=== PATIENT | female | born 1935 | race Caucasian/White ===

== ENCOUNTER 2017-10-27 09:55 | Inpatient (IN) | payer OTHER ==
[2017-10-27] MEDS ORDERED: Sodium Chloride 0.9% 1,000 ML IV STA (10:14)
--- NOTE | 2017-10-27 10:19 | ED PDOC ---
Arrival/HPI - General Chief Complaint: GI Problem Time Seen by Provider: 10/27/17 10:01 Historian: Patient, Family (daughter) - History of Present Illness Narrative History of Present Illness (Text): 10/27/17 10:19 This 82 yo female presents to this ED c/o generalized abdominal pain x 2 days. Patient stated she became nauseous , and vomited multiple time and occasional diarrhea since yesterday. Patient denies rectal bleeding, sob, cp, mandujano, dizziness, or abnormal gait. Denies recent travel, trauma, skin rash, hemoptysis, or sick contact. Time/Duration: Other (see hpi) Context: Home Past Medical History - Provider Review Nursing Documentation Reviewed: Yes - Infectious Disease Hx of Infectious Diseases: None - Cardiac Hx Cardiac Disorders: No - Pulmonary Hx Respiratory Disorders: No - Neurological Hx Neurological Disorder: No - HEENT Hx HEENT Disorder: No - Renal Hx Renal Disorder: No - Endocrine/Metabolic Hx Endocrine Disorders: No - Hematological/Oncological Hx Blood Transfusions: No Hx Blood Transfusion Reaction: No - Integumentary Hx Dermatological Disorder: No - Musculoskeletal/Rheumatological Hx Musculoskeletal Disorders: No - Gastrointestinal Hx Colostomy: Yes Other/Comment: Colon CA - Genitourinary/Gynecological Hx Genitourinary Disorders: No - Psychiatric Hx Emotional Abuse: No Hx Physical Abuse: No Hx Substance Use: No - Past Surgical History Past Surgical History: No Previous - Surgical History Other/Comment: Colon surgery - Anesthesia Hx Anesthesia Reactions: No Hx Malignant Hyperthermia: No - Suicidal Assessment Feels Threatened In Home Enviroment: No Family/Social History - Physician Review Nursing Documentation Reviewed: Yes Family/Social History: Other (noncontributory) Smoking Status: Unknown If Ever Smoked Hx Alcohol Use: No Hx Substance Use: No Hx Substance Use Treatment: No Allergies/Home Meds Allergies/Adverse Reactions: Allergies No Known Allergies Allergy (Verified 10/27/17 10:14) Home Medications: Home Meds Medication Instructions Recorded Confirmed Unobtainable 10/27/17 10/27/17 Review of Systems - Review of Systems Constitutional: Normal. absent: Fatigue, Weight Change, Fevers Eyes: Normal ENT: Normal. absent: Sore Throat Respiratory: Cough. absent: SOB, Sputum, Wheezing Cardiovascular: Normal. absent: Chest Pain, Palpitations Gastrointestinal: Abdominal Pain, Diarrhea, Nausea, Vomiting. absent: Constipation Genitourinary Female: Normal. absent: Dysuria, Frequency, Hematuria, Vaginal Bleeding, Vaginal Discharge Musculoskeletal: Normal. absent: Back Pain Skin: Normal. absent: Rash Neurological: Normal. absent: Headache, Dizziness, Focal Weakness, Gait Changes , Speech Changes, Facial Droop, Disequilibrium, Seizure Endocrine: Normal Hemo/Lymphatic: Normal Psychiatric: Normal Physical Exam Vital Signs Temp Pulse Resp BP Pulse Ox 10/27/17 12:08 74 16 135/77 98 10/27/17 11:46 98 H 16 100/46 L 98 10/27/17 10:02 97.9 F 100 H 18 101/66 97 Temperature: Afebrile Blood Pressure: Normal Pulse: Regular Respiratory Rate: Normal Appearance: Positive for: Well-Appearing, Non-Toxic, Ill-Appearing, Uncomfortable Pain Distress: Mild Mental Status: Positive for: Alert and Oriented X 3 - Systems Exam Head: Present: Atraumatic, Normocephalic Pupils: Present: PERRL Extroacular Muscles: Present: EOMI Conjunctiva: Present: Normal Mouth: Present: Moist Mucous Membranes Neck: Present: Normal Range of Motion, Trachea Midline. No: Meningeal Signs Respiratory/Chest: Present: Clear to Auscultation, Good Air Exchange. No: Respiratory Distress, Accessory Muscle Use Cardiovascular: Present: Regular Rate and Rhythm, Normal S1, S2. No: Murmurs Abdomen: Present: Normal Bowel Sounds. No: Tenderness, Distention, Peritoneal Signs, Rebound, Guarding Back: Present: Normal Inspection. No: CVA Tenderness Upper Extremity: Present: Normal Inspection, Normal ROM. No: Cyanosis, Edema Lower Extremity: Present: Normal Inspection, Normal ROM. No: Edema Neurological: Present: GCS=15, CN II-XII Intact, Speech Normal, Motor Func Grossly Intact, Normal Sensory Function, Normal Cerebellar Funct, Gait Normal, Memory Normal Skin: Present: Warm, Dry, Normal Color. No: Rashes Psychiatric: Present: Alert, Oriented x 3, Normal Insight, Normal Concentration Medical Decision Making ED Course and Treatment: 10/27/17 12:25 I spoke with Rosy Bulldozer Press Operator regarding patient presentation, and concern for bowel obstruction. She stated she is doing round and she will soon see patient. 10/27/17 13:00 Dr. Flores Surgeon came to examined patient and agrees with plan for admission. He recommended NPO, IVF 10/27/17 13:30 I spoke with VERA Gibson regarding bowel obstruction, n/v x 2 days. She agreed with plan for admission. Re-evaluation Time: 13:38 Reassessment Condition: Re-examined, Improving,but remains with symptoms - Lab Interpretations Lab Results: 10/27/17 10:30 10/27/17 10:30 Lab Results 10/27/17 11:01: Influenza Typ A,B (EIA) Negative for flu a/b 10/27/17 10:30: Sodium 143, Potassium 3.5 L, Chloride 101, Carbon Dioxide 23, Anion Gap 23 H, BUN 34 H, Creatinine 1.6 H, Est GFR ( Amer) 37, Est GFR ( Non-Af Amer) 31, Random Glucose 124 H, Calcium 9.5, Total Bilirubin 4.3 H, AST 65 H, ALT 24, Alkaline Phosphatase 134 H, Total Protein 7.2, Albumin 3.5, Globulin 3.7, Albumin/Globulin Ratio 1.0 L, Lipase 19 L 10/27/17 10:30: PT 16.4 H, INR 1.42 H, APTT 28.3 10/27/17 10:30: WBC 4.7, RBC 4.25, Hgb 14.2, Hct 42.3, MCV 99.5, MCH 33.4, MCHC 33.6, RDW 16.1 H, Plt Count 143, MPV 10.6, Gran % 78.3 H, Lymph % (Auto) 11.1 L , Boundary % (Auto) 10.0 H, Eos % (Auto) 0.4 L, Baso % (Auto) 0.2, Gran # 3.68, Lymph # (Auto) 0.5 L, Boundary # (Auto) 0.5, Eos # (Auto) 0.0, Baso # (Auto) 0.01 I have reviewed the lab results: Yes Interpretation: Abnormal lab values - RAD Interpretation Narrative RAD Interpretations (Text): 10/27/17 11:12 HISTORY: Cough COMPARISON: 09/13/2013 FINDINGS: LUNGS: No active pulmonary disease. PLEURA: No significant pleural effusion identified, no pneumothorax apparent. CARDIOVASCULAR: Upper No radiographic findings to suggest acute or significant cardiovascular disease. Venous access catheter in stable, satisfactory position. OSSEOUS STRUCTURES: No significant abnormalities. VISUALIZED UPPER ABDOMEN: Normal. OTHER FINDINGS: None. IMPRESSION: No active disease. No significant interval change compared to the prior examination(s). 10/27/17 12:42 This report is currently processing and HAS NOT BEEN OFFICIALLY SIGNED BY THE PHYSICIAN - ESTIMATED TIME OF APPROVAL IS 10/27/2017 12:42. PROCEDURE: CT Abdomen and Pelvis without intravenous contrast HISTORY: abdominal pain, n/v r/o obstruction COMPARISON: 09/28/2013 CT abdomen and pelvis. TECHNIQUE: Unenhanced study. Neither oral nor intravenous contrast administered. Radiation dose: Total exam DLP = 696.21 mGy-cm. This CT exam was performed using one or more of the following dose reduction techniques: Automated exposure control, adjustment of the mA and/or kV according to patient size, and/or use of iterative reconstruction technique. FINDINGS: LOWER THORAX: Unremarkable. LIVER: Unremarkable. No gross lesion or ductal dilatation. GALLBLADDER AND BILE DUCTS: Unremarkable. PANCREAS: Unremarkable. No gross lesion or ductal dilatation. SPLEEN: Unremarkable. ADRENALS: Unremarkable. No mass. KIDNEYS AND URETERS: Nonobstructing bilateral renal calculi none larger than 4 mm. VASCULATURE: Unremarkable. No aortic aneurysm. BOWEL: Small bowel obstruction. The point of obstruction appears to be a in the right lower quadrant at the site of surgical clips. More distally, terminal ileum and colon are decompressed. Left inguinal hernia containing dilated small bowel. The stomach is distended with large air-fluid level. APPENDIX: A normal appendix is not visualized. PERITONEUM: Unremarkable. No free fluid. No free air. LYMPH NODES: Unremarkable. No enlarged lymph nodes. BLADDER: Unremarkable. REPRODUCTIVE: Unremarkable. BONES: No acute fracture. OTHER FINDINGS: None. IMPRESSION: 1. Distal small bowel obstruction. Small bowel proximal to the obstruction is dilated as is the stomach with a large air-fluid level. This appears at the site of surgical clips in the right lower quadrant. 2. Proximal to this is a moderate left inguinal hernia containing dilated loops of small bowel. No obvious incarceration. 3. Postoperative changes related to a colectomy. Communication of results: Attempts to reach the physician residential assistant and convey these findings and obtain additional clinical information were unsuccessful. Radiology Orders: 10/27/17 10:27 ABD & PELVIS W/O PO OR IV CONT [CT] Stat 10/27/17 10:28 CHEST PORTABLE [RAD] Stat 10/27/17 12:35 CHEST PORTABLE [RAD] Stat - Medication Orders Current Medication Orders: Sodium Chloride (Sodium Chloride 0.9%) 1,000 mls @ 75 mls/hr IV .[id number] SARAH Discontinued Medications Famotidine (Pepcid) 20 mg IVP STAT STA Stop: 10/27/17 10:15 Last Admin: 10/27/17 10:34 Dose: 20 mg IVP Administration Document 10/27/17 10:34 SE (Rec: 10/27/17 10:34 [id number] Charges for Administration # of IVP Administrations 1 Sodium Chloride (Sodium Chloride 0.9%) 1,000 mls @ 1,000 mls/hr IV .Q1H STA Stop: 10/27/17 11:13 Last Admin: 10/27/17 10:34 Dose: 1,000 mls/hr eMAR Start Stop Document 10/27/17 10:34 SE (Rec: 10/27/17 10:34 [id number] Intravenous Solution Start Date 10/27/17 Start Time 10:34 Morphine Sulfate (Morphine) 2 mg IVP STAT STA Stop: 10/27/17 10:29 Last Admin: 10/27/17 10:42 Dose: 2 mg MAR Pain Assessment Document 10/27/17 10:42 SE (Rec: 10/27/17 10:42 [facility] [id number]) Pain Reassessment Is this a pain reassessment? No Sleep Is patient sleeping during reassessment? No Presence of Pain Presence of Pain Yes Pain Scale Used Pain Scale Used Numeric IVP Administration Document 10/27/17 10:42 SE (Rec: 10/27/17 10:42 [facility] [id number]) Charges for Administration # of IVP Administrations 1 Ondansetron HCl (Zofran Inj) 4 mg IVP STAT STA Stop: 10/27/17 10:15 Last Admin: 10/27/17 10:34 Dose: 4 mg IVP Administration Document 10/27/17 10:34 SE (Rec: 10/27/17 10:34 [id number][facility] Charges for Administration # of IVP Administrations 1 Disposition/Present on Arrival - Present on Arrival Any Indicators Present on Arrival: No History of DVT/PE: No History of Uncontrolled Diabetes: No Urinary Catheter: No History of Decub. Ulcer: No History Surgical Site Infection Following: None - Disposition Have Diagnosis and Disposition been Completed?: Yes Diagnosis: Small bowel obstruction Disposition: HOSPITALIZED Disposition Time: 13:39 Patient Plan: Admission Condition: STABLE Referrals: Krystle Monte MD [Primary Care Provider] - Follow up with primary Forms: [employer] (Salvadorean)
[2017-10-27] MEDS ORDERED: Morphine 2 mg/ml ISec IVP STA (10:28)
[2017-10-27 10:56] LABS: BASO # 0.01 K/mm3 (0.0-2.0); BASO % 0.2 % (0.0-3.0); EOS % 0.4 % (1.5-5.0); GRAN # 3.68 (1.4-6.5); GRAN % 78.3 % (50.0-68.0); HEMOGLOBIN 14.2 g/dL (12.0-16.0); LYMPH # 0.5 (1.2-3.4); LYMPH % 11.1 % (22.0-35.0); MEAN CELL VOLUME 99.5 fl (80.0-105.0); MEAN CORPUSCULAR HEMOGLOBIN 33.4 pg (25.0-35.0); MEAN CORPUSCULAR HGB CONC 33.6 g/dl (31.0-37.0); MEAN PLATELET VOLUME 10.6 fl (7.0-11.0); MONO # 0.5 (0.1-0.6); RBC 4.25 10^6/uL (3.5-6.1); RED CELL DISTRIBUTION WIDTH 16.1 % (11.5-14.5); WHITE BLOOD COUNT 4.7 10^3/ul (4.5-11.0)
[2017-10-27 11:02] LABS: PROTHROMBIN TIME 16.4 SECONDS (9.4-12.5)
[2017-10-27 11:03] LABS: ALBUMIN 3.5 g/dL (3.0-4.8); CALCIUM 9.5 mg/dL (8.4-10.5); INR 1.42 (0.93-1.08); PARTIAL THROMBOPLASTIN TIME 28.3 Seconds (25.1-36.5)
--- NOTE | 2017-10-27 11:05 | RAD ---
HISTORY: Cough COMPARISON: 09/13/2013 FINDINGS: LUNGS: No active pulmonary disease. PLEURA: No significant pleural effusion identified, no pneumothorax apparent. CARDIOVASCULAR: Upper No radiographic findings to suggest acute or significant cardiovascular disease. Venous access catheter in stable, satisfactory position. OSSEOUS STRUCTURES: No significant abnormalities. VISUALIZED UPPER ABDOMEN: Normal. OTHER FINDINGS: None. IMPRESSION: No active disease. No significant interval change compared to the prior examination(s).
--- NOTE | 2017-10-27 12:37 | CT ---
PROCEDURE: CT Abdomen and Pelvis without intravenous contrast HISTORY: abdominal pain, n/v r/o obstruction COMPARISON: 09/28/2013 CT abdomen and pelvis. TECHNIQUE: Unenhanced study. Neither oral nor intravenous contrast administered. Radiation dose: Total exam DLP = 696.21 mGy-cm. This CT exam was performed using one or more of the following dose reduction techniques: Automated exposure control, adjustment of the mA and/or kV according to patient size, and/or use of iterative reconstruction technique. FINDINGS: LOWER THORAX: Unremarkable. LIVER: Unremarkable. No gross lesion or ductal dilatation. GALLBLADDER AND BILE DUCTS: Unremarkable. PANCREAS: Unremarkable. No gross lesion or ductal dilatation. SPLEEN: Unremarkable. ADRENALS: Unremarkable. No mass. KIDNEYS AND URETERS: Nonobstructing bilateral renal calculi none larger than 4 mm. VASCULATURE: Unremarkable. No aortic aneurysm. BOWEL: Small bowel obstruction. The point of obstruction appears to be a in the right lower quadrant at the site of surgical clips. More distally, terminal ileum and colon are decompressed. Left inguinal hernia containing dilated small bowel. The stomach is distended with large air-fluid level. APPENDIX: A normal appendix is not visualized. PERITONEUM: Unremarkable. No free fluid. No free air. LYMPH NODES: Unremarkable. No enlarged lymph nodes. BLADDER: Unremarkable. REPRODUCTIVE: Unremarkable. BONES: No acute fracture. OTHER FINDINGS: None. IMPRESSION: 1. Distal small bowel obstruction. Small bowel proximal to the obstruction is dilated as is the stomach with a large air-fluid level. This appears at the site of surgical clips in the right lower quadrant. 2. Proximal to this is a moderate left inguinal hernia containing dilated loops of small bowel. No obvious incarceration. 3. Postoperative changes related to a colectomy. Communication of results: Attempts to reach the physician licensed physical therapy assistant and convey these findings and obtain additional clinical information were unsuccessful.
[2017-10-27] MEDS ORDERED: Sodium Chloride 0.9% 1,000 ML IV SCH ×2 (13:45→14:10)
[2017-10-27] MEDS ORDERED: Morphine 4 mg/ml ISec IVP PRN (14:20)
--- NOTE | 2017-10-27 15:20 | RAD ---
HISTORY: Nasogastric tube placement. COMPARISON: October 27, 2017. Time of the most recent examination: 10:50. FINDINGS: LUNGS: No active pulmonary disease. PLEURA: No significant pleural effusion identified, no pneumothorax apparent. CARDIOVASCULAR: No radiographic findings to suggest acute or significant cardiovascular disease. Venous access catheter in stable, satisfactory position. OSSEOUS STRUCTURES: No significant abnormalities. VISUALIZED UPPER ABDOMEN: Normal. OTHER FINDINGS: Nasogastric tube recently placed courses through the esophagus into the distal stomach. IMPRESSION: Satisfactory position of recently placed nasogastric tube. Otherwise no interval change.
--- NOTE | 2017-10-27 15:33 | CP.PCM.CON ---
<Rosy Cade - Last Filed: 10/27/17 15:29> History of Present Illness - History of Present Illness History of Present Illness: General surgery consult for Dr. Flores CC: SBO, inguinal hernia Patient is an 82F with PMH of anal cancer and PSH of colostomy, right hemicolectomy for intussusception and reversal of colostomy who presented tothe ED for one day of nausea, vomiting, and diffuse abdominal pain. Patient denies any fevers, chills, Chest pain, SOB, states that she has had poor appetite for a couple of days. Patient had an episode of dark green/brown foul smelling emesis in the ER. CT scan showed small bowel obstruction with transition point in small bowel containing left inguinal hernia. ER inserted NGT with immediate 100cc's of brown/green fluid. Review of Systems - Review of Systems All systems: reviewed and no additional remarkable complaints except (as per HPI ) Past Patient History - Infectious Disease Hx of Infectious Diseases: None - Past Medical History & Family History Past Medical History?: Yes - Past Social History Smoking Status: Unknown If Ever Smoked Alcohol: None Drugs: Denies - CARDIAC Hx Cardiac Disorders: No Hx Hypertension: Yes - PULMONARY Hx Respiratory Disorders: No - NEUROLOGICAL Hx Neurological Disorder: No - HEENT Hx HEENT Problems: No - RENAL Hx Chronic Kidney Disease: No - ENDOCRINE/METABOLIC Hx Endocrine Disorders: No - HEMATOLOGICAL/ONCOLOGICAL Hx Blood Transfusions: No Hx Blood Transfusion Reaction: No - INTEGUMENTARY Hx Dermatological Problems: No - MUSCULOSKELETAL/RHEUMATOLOGICAL Hx Musculoskeletal Disorders: No - GASTROINTESTINAL Hx Colostomy: Yes Hx Gastroesophageal Reflux: Yes Other/Comment: anal CA - GENITOURINARY/GYNECOLOGICAL Hx Genitourinary Disorders: No - PSYCHIATRIC Hx Emotional Abuse: No Hx Physical Abuse: No Hx Substance Use: No - SURGICAL HISTORY Hx Surgeries: Yes Other/Comment: anal cancer resection, colostomy, reversal of colostomy and right hemicolectomy - ANESTHESIA Hx Anesthesia Reactions: No Hx Malignant Hyperthermia: No Meds Allergies/Adverse Reactions: Allergies Allergy/AdvReac Type Severity Reaction Status Date / Time No Known Allergies Allergy Verified 10/27/17 10:14 - Medications Medications: Current Medications Potassium Chloride 20 meq/ (Lactated Ringer's) 1,010 mls @ 125 mls/hr IV .Q8H5M SARAH Stop: 02/12/18 14:31 Morphine Sulfate (Morphine) 4 mg IVP Q4H PRN PRN Reason: Pain, severe (8-10) Physical Exam - Constitutional Appears: Non-toxic, No Acute Distress - Head Exam Head Exam: ATRAUMATIC, NORMOCEPHALIC - Eye Exam Eye Exam: Scleral icterus - ENT Exam ENT Exam: Mucous Membranes Moist, Normal Oropharynx - Respiratory Exam Respiratory Exam: NORMAL BREATHING PATTERN. absent: Accessory Muscle Use, Respiratory Distress - Cardiovascular Exam Cardiovascular Exam: Tachycardia, REGULAR RHYTHM - GI/Abdominal Exam GI & Abdominal Exam: Distended, Soft, Tenderness (mild diffuse tenderness) Additional comments: palpable soft left inguinal hernia, was able to reduced - Rectal Exam Rectal Exam: NORMAL INSPECTION. absent: Bloody Stool - Extremities Exam Extremities exam: Negative for: calf tenderness, pedal edema - Neurological Exam Neurological exam: Alert, Oriented x3 - Psychiatric Exam Psychiatric exam: Normal Affect, Normal Mood - Skin Skin Exam: Dry, Normal Color, Warm Results - Vital Signs Recent Vital Signs: Last Vital Signs Temp 97.9 F 10/27/17 10:02 Pulse 74 10/27/17 12:08 Resp 16 10/27/17 12:08 BP 135/77 10/27/17 12:08 Pulse Ox 98 10/27/17 12:08 - Labs Result Diagrams: 10/27/17 10:30 10/27/17 10:30 - Imaging and Cardiology CT scan - abdomen Status: Image reviewed by me, Report reviewed by me CT scan - pelvis Status: Image reviewed by me, Report reviewed by me Assessment & Plan - Assessment and Plan (Free Text) Assessment: 82F with small bowel obstruction d/t left inguinal hernia containing small bowel. Elevated LFT's--R/O cholecystitis Plan: -NGT inserted--intermittent low wall suction -NPO except small amount of ice chips -Abdominal US for elevated LFT evaluation -PRN Nausea and pain medication -trend CBC/CMP, mag, phos -supplement electrolytes as needed -medical management per primary -Patient will need an inguinal hernia repair once bowel obstruction is resolved. Seen and discussed with Dr. Mark Cade, PGY2 <Anil Flores - Last Filed: 10/27/17 19:11> Meds - Medications Medications: Current Medications Heparin Sodium (Porcine) (Heparin) 5,000 units SC Q8 SARAH PRN Reason: Protocol Potassium Chloride 20 meq/ (Lactated Ringer's) 1,010 mls @ 125 mls/hr IV .Q8H5M SARAH Stop: 10/28/17 14:31 Last Admin: 10/27/17 18:05 Dose: 125 mls/hr Morphine Sulfate (Morphine) 4 mg IVP Q4H PRN PRN Reason: Pain, severe (8-10) Pantoprazole Sodium (Protonix Inj) 40 mg IVP DAILY [facility] Results - Vital Signs Recent Vital Signs: Last Vital Signs Temp 97.7 F 10/27/17 16:00 Pulse 78 10/27/17 16:44 Resp 16 10/27/17 16:44 BP 120/56 L 10/27/17 16:44 Pulse Ox 95 10/27/17 16:00 - Labs Result Diagrams: 10/27/17 10:30 10/27/17 10:30 Labs: Laboratory Results - last 24 hr 10/27/17 16:44 Triglycerides 88 Cholesterol 123 L LDL Cholesterol Direct 39 HDL Cholesterol 51 Assessment & Plan - Assessment and Plan (Free Text) Assessment: Dx Reduced Left Femoral Hernia(SBO) Anal CA Elevated LFT(Bili 4.3-CD ^>^ mm/Sono Sludge-stones Ilia NGT/IV/Ab/MRCP/GI Consultt(Poss EUS_ERCP) This consult done under my direct supervision An Flores MD FACS
--- NOTE | 2017-10-27 15:53 | US ---
HISTORY: abdominal pain, elevated LFT's COMPARISON: 10/10/2014 abdominal ultrasound TECHNIQUE: Sonographic evaluation of the abdomen. FINDINGS: LIVER: Measures 13.3 cm. Hepatopedal blood flow. Fatty infiltration manifest ultrasonographically as increased echogenicity of the liver parenchyma. No mass. No intrahepatic bile duct dilatation. GALLBLADDER: Unremarkable. No gallstones. COMMON BILE DUCT: Measures 6.6 mm. No stones. No dilatation. PANCREAS: Incompletely visualized. Portions of the distal body and tail of the pancreas obscured by overlying bowel gas. RIGHT KIDNEY: Measures 3.9 x 8.3cm. Normal echogenicity. No calculus, mass, or hydronephrosis. LEFT KIDNEY: Measures 5 x 9.9cm. Normal echogenicity. No calculus, mass, or hydronephrosis. SPLEEN: Normal in size and contour. No mass. AORTA: No aneurysmal dilatation. IVC: Unremarkable. OTHER FINDINGS: None. IMPRESSION: Hepatic steatosis without focal abnormality. No significant interval change compared to the prior examination(s).
[2017-10-27 17:03] VITALS: BMI 33.9
[2017-10-27 17:05] LABS: HDL CHOLESTEROL 51 mg/dL (29-60)
[2017-10-27 17:16] LABS: LDL CHOLESTEROL 39 mg/dL (0-129)
[2017-10-27] MEDS: Potassium Chloride 20 MEQ in Lactated Ringer's 1,000 ML IV SCH ×2 (18:05→23:00)
--- NOTE | 2017-10-27 22:06 | CP.PCM.PCO ---
Physician Communication Note - Physician Communication Note Physician Communication Note: Pt c/o calf pain. Exam:BL Calf tenderness. STAT BL LE US, nurse notified
[2017-10-28 07:11] LABS: BASO # 0.01 K/mm3 (0.0-2.0); BASO % 0.1 % (0.0-3.0); EOS # 0.1 (0.0-0.7); EOS % 0.7 % (1.5-5.0); GRAN # 4.96 (1.4-6.5); GRAN % 72.6 % (50.0-68.0); HEMOGLOBIN 12.4 g/dL (12.0-16.0); LYMPH # 0.8 (1.2-3.4); LYMPH % 12.3 % (22.0-35.0); MEAN CELL VOLUME 100.3 fl (80.0-105.0); MEAN CORPUSCULAR HEMOGLOBIN 32.7 pg (25.0-35.0); MEAN CORPUSCULAR HGB CONC 32.6 g/dl (31.0-37.0); MEAN PLATELET VOLUME 11.7 fl (7.0-11.0); MONO % 14.3 % (1.0-6.0); PLATELET COUNT 132 10^3/uL (120.0-450.0); RBC 3.79 10^6/uL (3.5-6.1); RED CELL DISTRIBUTION WIDTH 16.5 % (11.5-14.5); WHITE BLOOD COUNT 6.8 10^3/ul (4.5-11.0)
[2017-10-28 07:38] LABS: ALB/GLOB RATIO 0.8 (1.1-1.8); ALBUMIN 2.7 g/dL (3.0-4.8); CALCIUM 8.6 mg/dL (8.4-10.5); MAGNESIUM 2.1 mg/dL (1.7-2.2)
[2017-10-28 07:42] LABS: INR 1.57 (0.93-1.08); PARTIAL THROMBOPLASTIN TIME 28.2 Seconds (25.1-36.5); PROTHROMBIN TIME 18.2 SECONDS (9.4-12.5)
--- NOTE | 2017-10-28 07:44 | CP.PCM.PN ---
Subjective - Date & Time of Evaluation Date of Evaluation: 10/28/17 Time of Evaluation: 07:44 - Subjective Subjective: Surgery progress note for Dr. Flores Patient seen and examined at bedside. Patient still has LLQ and Left pelvic pain. Patient otherwise doing fine Objective - Vital Signs/Intake and Output Vital Signs (last 24 hours): Temp Pulse Resp BP Pulse Ox 99.4 F 88 18 98/72 L 95 10/28/17 00:00 10/28/17 00:00 10/28/17 00:00 10/28/17 00:00 10/28/17 00:00 Intake and Output: 10/28/17 10/28/17 06:59 18:59 Intake Total 0 Output Total 1 Balance -1 - Medications Medications: Current Medications Heparin Sodium (Porcine) (Heparin) 5,000 units SC Q8 SARAH PRN Reason: Protocol Last Admin: 10/28/17 06:08 Dose: 5,000 units Potassium Chloride 20 meq/ (Lactated Ringer's) 1,010 mls @ 125 mls/hr IV .Q8H5M [facility] Stop: 10/28/17 14:31 Last Admin: 10/27/17 23:00 Dose: 125 mls/hr Morphine Sulfate (Morphine) 4 mg IVP Q4H PRN PRN Reason: Pain, severe (8-10) Last Admin: 10/27/17 20:01 Dose: 4 mg Pantoprazole Sodium (Protonix Inj) 40 mg IVP DAILY SARAH - Labs Labs: 10/28/17 06:30 10/28/17 06:30 PT 18.2 SECONDS (9.4-12.5) H 10/28/17 06:30 INR 1.57 (0.93-1.08) H 10/28/17 06:30 APTT 28.2 Seconds (25.1-36.5) 10/28/17 06:30 - Constitutional Appears: Well - Head Exam Head Exam: ATRAUMATIC, NORMAL INSPECTION, NORMOCEPHALIC - Eye Exam Eye Exam: EOMI, Normal appearance, PERRL Pupil Exam: NORMAL ACCOMODATION, PERRL - ENT Exam ENT Exam: Mucous Membranes Moist, Normal Exam - Neck Exam Neck Exam: Full ROM, Normal Inspection. absent: Lymphadenopathy - Respiratory Exam Respiratory Exam: Clear to Ausculation Bilateral, NORMAL BREATHING PATTERN - Cardiovascular Exam Cardiovascular Exam: REGULAR RHYTHM, +S1, +S2. absent: Murmur - GI/Abdominal Exam GI & Abdominal Exam: Soft, Normal Bowel Sounds. absent: Tenderness - Extremities Exam Extremities Exam: Full ROM, Normal Capillary Refill, Normal Inspection. absent : Joint Swelling, Pedal Edema - Back Exam Back Exam: NORMAL INSPECTION - Neurological Exam Neurological Exam: Alert, Awake, CN II-XII Intact, Normal Gait, Oriented x3 - Psychiatric Exam Psychiatric exam: Normal Affect, Normal Mood - Skin Skin Exam: Dry, Intact, Normal Color, Warm Assessment and Plan - Assessment and Plan (Free Text) Assessment: 82F with small bowel obstruction d/t left inguinal hernia containing small bowel. Elevated LFT's--R/O cholecystitis Plan: -NGT inserted--intermittent low wall suction -NPO except small amount of ice chips -Abdominal US for elevated LFT evaluation -PRN Nausea and pain medication -trend CBC/CMP, mag, phos -follow up Lactic Acid -supplement electrolytes as needed -medical management per primary -Patient will need an inguinal hernia repair once bowel obstruction is resolved.
--- NOTE | 2017-10-28 07:46 | CP.PCM.PN ---
Subjective - Date & Time of Evaluation Date of Evaluation: 10/28/17 Time of Evaluation: 07:46 Objective - Vital Signs/Intake and Output Vital Signs (last 24 hours): Temp Pulse Resp BP Pulse Ox 99.4 F 88 18 98/72 L 95 10/28/17 00:00 10/28/17 00:00 10/28/17 00:00 10/28/17 00:00 10/28/17 00:00 Intake and Output: 10/28/17 10/28/17 06:59 18:59 Intake Total 0 Output Total 1 Balance -1 - Medications Medications: Current Medications Heparin Sodium (Porcine) (Heparin) 5,000 units SC Q8 SARAH PRN Reason: Protocol Last Admin: 10/28/17 06:08 Dose: 5,000 units Potassium Chloride 20 meq/ (Lactated Ringer's) 1,010 mls @ 125 mls/hr IV .Q8H5M SARAH Stop: 10/28/17 14:31 Last Admin: 10/27/17 23:00 Dose: 125 mls/hr Morphine Sulfate (Morphine) 4 mg IVP Q4H PRN PRN Reason: Pain, severe (8-10) Last Admin: 10/27/17 20:01 Dose: 4 mg Pantoprazole Sodium (Protonix Inj) 40 mg IVP DAILY SARAH - Labs Labs: 10/28/17 06:30 10/28/17 06:30 PT 18.2 SECONDS (9.4-12.5) H 10/28/17 06:30 INR 1.57 (0.93-1.08) H 10/28/17 06:30 APTT 28.2 Seconds (25.1-36.5) 10/28/17 06:30 Assessment and Plan - Assessment and Plan (Free Text) Assessment: 74yo M with PMHx of DM, HTN, dementia, dysphagia vision loss, UTIs was sent from [facility] for fever and AMS and was found to have anemia, LEYDI, and sepsis likely secondary to UTI with sacral osteomyelitis - IV antibiotics, currently on Merrem (previous UTI was multi-drug resistant Klebsiella) - Will follow up blood, urine, and sputum cx. - CT: sacral decubitus ulcer with sacral/coccygeal osteomyelitis with probable adjacent soft tissue infection along left paravertebral musculature with probable extension to spine - Recommend MRI - Will FU bone scan ordered by medicine team - Will pack small opening with 1/" iodaform BID - Discussed plan with Dr. Mitchell
[2017-10-28 08:45] LABS: LYMPHOCYTE 25 % (22.0-35.0); NEUTROPHIL 46 % (50.0-70.0)
[2017-10-28 08:47] LABS: EOSINOPHIL 2 % (0.0-3.0); METAMYELOCYTE 4 %; MONOCYTE 9 % (1.0-6.0)
[2017-10-28 08:49] LABS: ANISOCYTOSIS SLIGHT
[2017-10-28 08:50] LABS: PLATELET ESTIMATE NORMAL (NORMAL)
[2017-10-28 08:55] LABS: BAND 14 % (0-2)
--- NOTE | 2017-10-28 08:56 | US ---
HISTORY: Leg pain and swelling. Evaluate for DVT PHYSICIAN(S): Yoni Lilly MD. TECHNIQUE: Duplex sonography and color-flow Doppler with graded compression were used to evaluate the deep venous systems of both lower extremities. FINDINGS: The visualized deep venous systems of both lower extremities are sonographically normal and compressible. Normal wave forms and augmentation are seen. There is no sonographic evidence for deep venous thrombosis in the visualized segments of both lower extremities. IMPRESSION: No sonographic evidence for deep venous thrombosis in the visualized segments of both lower extremities.
[2017-10-28 09:01] LABS: PH,URINE 5.5 (4.7-8.0); URINE APPEARANCE CLEAR (CLEAR); URINE BILIRUBIN NEGATIVE (NEGATIVE); URINE BLOOD TRACE-INTACT (NEGATIVE); URINE COLOR YELLOW (YELLOW); URINE GLUCOSE (UA) NEGATIVE (NEGATIVE); URINE LEUKOCYTE ESTERASE NEGATIVE Leu/uL (NEGATIVE); URINE NITRATE NEGATIVE (NEGATIVE); URINE PROTEIN NEGATIVE mg/dL (<30 mg/dL); URINE UROBILINOGEN 0.2 E.U./dL (<1 E.U./dL)
[2017-10-28 09:08] LABS: URINE BACTERIA MANY (NEG); URINE HYALINE CAST 0 - 2 /hpf
[2017-10-28 09:09] LABS: URINE AMORPHOUS SEDIMENT FEW; URINE FINE GRANULAR CAST 0 - 2 /hpf (0-2)
[2017-10-28] MEDS: Potassium Chloride 20 MEQ in Lactated Ringer's 1,000 ML IV SCH (10:29)
--- NOTE | 2017-10-28 10:34 | MRI ---
PROCEDURE: MRI Abdomen without contrast HISTORY: COMPARISON: 10/27/2017 CT TECHNIQUE: Multisequence, multiplanar MR images of the abdomen without gadolinium contrast enhancement. FINDINGS: LIVER: Unremarkable. GALLBLADDER: Unremarkable. Mild extrahepatic biliary dilatation without choledocholithiasis, cholelithiasis for significant pancreatic duct dilatation . SPLEEN: Unremarkable. ADRENALS: Unremarkable. KIDNEYS: Unremarkable. 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 . AORTA: No aneurysm. ASCITES: None. PERITONEUM: Unremarkable. LYMPH NODES: Unremarkable. OTHER FINDINGS: Re- demonstration of small bowel obstruction with incarcerated left inguinal hernia containing bowel loop and fluid. Accompanying infiltrative/inflammatory changes in the left inguinal fat. . IMPRESSION: Re- demonstration of small bowel obstruction with incarcerated left inguinal hernia containing bowel loop and fluid. Accompanying infiltrative/inflammatory changes in the left inguinal fat. . 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 . Mild extrahepatic biliary dilatation without choledocholithiasis, cholelithiasis for significant pancreatic duct dilatation .
--- NOTE | 2017-10-28 10:47 | CP.PCM.PCO ---
Physician Communication Note - Physician Communication Note Physician Communication Note: Pt needs more IV Fluids-Bolus Now/Holding surgery now
[2017-10-28] MEDS ORDERED: Dextrose 5%/Lactated Ringer's 1,000 ML IV SCH ×3 (11:00→12:30)
[2017-10-28 13:39] LABS: HEPATITIS A IGM NEGATIVE (NEGATIVE); HEPATITIS B CORE AB NEGATIVE (NEGATIVE)
[2017-10-28 13:53] LABS: HEPATITIS C ANTIBODY NEGATIVE (NEGATIVE)
[2017-10-28 14:10] LABS: HEPATITIS B SURFACE AG Negative (NEGATIVE)
--- NOTE | 2017-10-28 14:54 | CP.PCM.PCO ---
Physician Communication Note - Physician Communication Note Physician Communication Note: Needs OR Today
--- NOTE | 2017-10-28 14:55 | CP.PCM.HP ---
<Lydia Osorio - Last Filed: 10/28/17 14:56> History of Present Illness - History of Present Illness History of Present Illness: Chief complaint: Generalized abdominal pain 82 yr female, American speaking only w/ history of previous colon surgery (dates unknown). She is AAOx3 but poor historian. She reports having diarrhea and n/v x 2 days. Denies any fever, chills, chest pain, shortness of breath, or urinary problems Present on Admission - Present on Admission Any Indicators Present on Admission: No History of DVT/PE: No History of Uncontrolled Diabetes: No Urinary Catheter: No Decubitus Ulcer Present: No Review of Systems - Constitutional Constitutional: As Per HPI - EENT Eyes: As Per HPI Ears: As Per HPI Nose/Mouth/Throat: As Per HPI - Breasts Breasts: As Per HPI - Cardiovascular Cardiovascular: As Per HPI - Respiratory Respiratory: As Per HPI - Gastrointestinal Gastrointestinal: As Per HPI - Genitourinary Genitourinary: As Per HPI - Musculoskeletal Musculoskeletal: As Per HPI - Integumentary Integumentary: As Per HPI - Neurological Neurological: As Per HPI - Psychiatric Psychiatric: As Per HPI - Endocrine Endocrine: As Per HPI - Hematologic/Lymphatic Hematologic: As Per HPI Past Patient History - Infectious Disease Hx of Infectious Diseases: None - Past Medical History & Family History Past Medical History?: Yes - Past Social History Smoking Status: Never Smoked - CARDIAC Hx Cardiac Disorders: No Hx Hypertension: Yes - PULMONARY Hx Respiratory Disorders: No - NEUROLOGICAL Hx Neurological Disorder: No - HEENT Hx HEENT Problems: No - RENAL Hx Chronic Kidney Disease: No - ENDOCRINE/METABOLIC Hx Endocrine Disorders: No - HEMATOLOGICAL/ONCOLOGICAL Hx Cancer: Yes (COLON) - INTEGUMENTARY Hx Dermatological Problems: No - MUSCULOSKELETAL/RHEUMATOLOGICAL Hx Falls: No - GASTROINTESTINAL Hx Colostomy: Yes Hx Gastroesophageal Reflux: Yes Other/Comment: anal CA - GENITOURINARY/GYNECOLOGICAL Hx Genitourinary Disorders: No - PSYCHIATRIC Hx Emotional Abuse: No Hx Physical Abuse: No - SURGICAL HISTORY Hx Surgeries: Yes Other/Comment: anal cancer resection, colostomy, reversal of colostomy and right hemicolectomy - ANESTHESIA Hx Anesthesia Reactions: No Hx Malignant Hyperthermia: No Meds Allergies/Adverse Reactions: Allergies Allergy/AdvReac Type Severity Reaction Status Date / Time No Known Allergies Allergy Verified 10/27/17 10:14 Physical Exam - Constitutional Appears: In Acute Distress - Head Exam Head Exam: ATRAUMATIC, NORMAL INSPECTION, NORMOCEPHALIC - Eye Exam Eye Exam: EOMI, Normal appearance, PERRL Pupil Exam: NORMAL ACCOMODATION, PERRL - ENT Exam ENT Exam: Mucous Membranes Moist, Normal Exam Additional comments: R nare NGT, C/D/I - Neck Exam Neck exam: Positive for: Normal Inspection - Respiratory Exam Respiratory Exam: Clear to Auscultation Bilateral, NORMAL BREATHING PATTERN - Cardiovascular Exam Cardiovascular Exam: REGULAR RHYTHM - GI/Abdominal Exam GI & Abdominal Exam: Hypoactive Bowel Sounds, Soft, Tenderness - Extremities Exam Extremities exam: Positive for: pedal edema, tenderness - Back Exam Back exam: NORMAL INSPECTION - Neurological Exam Neurological exam: Alert, Normal Gait, Oriented x3 - Psychiatric Exam Psychiatric exam: Normal Affect, Normal Mood - Skin Skin Exam: Dry, Intact, Normal Color, Warm Results - Vital Signs Recent Vital Signs: Last Vital Signs Temp 98.3 F 10/28/17 07:30 Pulse 84 10/28/17 07:30 Resp 18 10/28/17 07:30 BP 109/40 L 10/28/17 07:30 Pulse Ox 93 L 10/28/17 07:30 - Labs Result Diagrams: 10/28/17 06:30 10/28/17 06:30 Labs: Laboratory Results - last 24 hr 10/27/17 10/27/17 10/28/17 16:44 16:45 06:30 WBC 6.8 D RBC 3.79 Hgb 12.4 Hct 38.0 MCV 100.3 MCH 32.7 MCHC 32.6 RDW 16.5 H Plt Count 132 MPV 11.7 H Gran % 72.6 H Lymph % (Auto) 12.3 L [place] % (Auto) 14.3 H Eos % (Auto) 0.7 L Baso % (Auto) 0.1 Gran # 4.96 Lymph # (Auto) 0.8 L [place] # (Auto) 1.0 H Eos # (Auto) 0.1 Baso # (Auto) 0.01 Neutrophils % (Manual) 46 L Band Neutrophils % 14 H* Lymphocytes % (Manual) 25 Monocytes % (Manual) 9 H Eosinophils % (Manual) 2 Metamyelocytes % 4 Platelet Evaluation Normal Anisocytosis (manual) Slight Macrocytosis (manual) Slight PT INR APTT Sodium Potassium Chloride Carbon Dioxide Anion Gap BUN Creatinine Est GFR ( Amer) Est GFR (Non-Af Amer) Random Glucose Hemoglobin A1c 4.9 Lactic Acid Calcium Phosphorus Magnesium Total Bilirubin AST ALT Alkaline Phosphatase Total Protein Albumin Globulin Albumin/Globulin Ratio Triglycerides 88 Cholesterol 123 L LDL Cholesterol Direct 39 HDL Cholesterol 51 TSH 3rd Generation Urine Color Urine Appearance Urine pH Ur Specific [place] Urine Protein Urine Glucose (UA) Urine Ketones Urine Blood Urine Nitrate Urine Bilirubin Urine Urobilinogen Ur Leukocyte Esterase Urine RBC Urine WBC Ur Epithelial Cells Amorphous Sediment Urine Bacteria Hyaline Casts Fine Granular Casts Hepatitis A IgM Ab Hep Bs Antigen Hep B Core IgM Ab Hepatitis C Antibody 10/28/17 10/28/17 10/28/17 06:30 06:30 06:30 WBC RBC Hgb Hct MCV MCH MCHC RDW Plt Count MPV Gran % Lymph % (Auto) [place] % (Auto) Eos % (Auto) Baso % (Auto) Gran # Lymph # (Auto) [place] # (Auto) Eos # (Auto) Baso # (Auto) Neutrophils % (Manual) Band Neutrophils % Lymphocytes % (Manual) Monocytes % (Manual) Eosinophils % (Manual) Metamyelocytes % Platelet Evaluation Anisocytosis (manual) Macrocytosis (manual) PT 18.2 H INR 1.57 H APTT 28.2 Sodium 143 Potassium 4.1 Chloride 104 Carbon Dioxide 25 Anion Gap 18 BUN 63 H Creatinine 2.7 H Est GFR ( Amer) 20 Est GFR (Non-Af Amer) 17 Random Glucose 94 Hemoglobin A1c Lactic Acid Calcium 8.6 Phosphorus 5.7 H Magnesium 2.1 Total Bilirubin 2.4 H AST 39 H D ALT 32 Alkaline Phosphatase 99 Total Protein 6.0 Albumin 2.7 L Globulin 3.3 Albumin/Globulin Ratio 0.8 L Triglycerides Cholesterol LDL Cholesterol Direct HDL Cholesterol TSH 3rd Generation 1.18 Urine Color Urine Appearance Urine pH Ur Specific [place] Urine Protein Urine Glucose (UA) Urine Ketones Urine Blood Urine Nitrate Urine Bilirubin Urine Urobilinogen Ur Leukocyte Esterase Urine RBC Urine WBC Ur Epithelial Cells Amorphous Sediment Urine Bacteria Hyaline Casts Fine Granular Casts Hepatitis A IgM Ab Hep Bs Antigen Hep B Core IgM Ab Hepatitis C Antibody 10/28/17 10/28/17 10/28/17 06:30 08:44 09:30 WBC RBC Hgb Hct MCV MCH MCHC RDW Plt Count MPV Gran % Lymph % (Auto) [place] % (Auto) Eos % (Auto) Baso % (Auto) Gran # Lymph # (Auto) [place] # (Auto) Eos # (Auto) Baso # (Auto) Neutrophils % (Manual) Band Neutrophils % Lymphocytes % (Manual) Monocytes % (Manual) Eosinophils % (Manual) Metamyelocytes % Platelet Evaluation Anisocytosis (manual) Macrocytosis (manual) PT INR APTT Sodium Potassium Chloride Carbon Dioxide Anion Gap BUN Creatinine Est GFR ( Amer) Est GFR (Non-Af Amer) Random Glucose Hemoglobin A1c Lactic Acid 2.9 H Calcium Phosphorus Magnesium Total Bilirubin AST ALT Alkaline Phosphatase Total Protein Albumin Globulin Albumin/Globulin Ratio Triglycerides Cholesterol LDL Cholesterol Direct HDL Cholesterol TSH 3rd Generation Urine Color Yellow Urine Appearance Clear Urine pH 5.5 Ur Specific [place] 1.025 Urine Protein Negative Urine Glucose (UA) Negative Urine Ketones Negative Urine Blood Trace-intact H Urine Nitrate Negative Urine Bilirubin Negative Urine Urobilinogen 0.2 Ur Leukocyte Esterase Negative Urine RBC 5 - 10 Urine WBC 2 - 5 Ur Epithelial Cells 6 - 8 Amorphous Sediment Few Urine Bacteria Many Hyaline Casts 0 - 2 Fine Granular Casts 0 - 2 Hepatitis A IgM Ab Negative Hep Bs Antigen Negative Hep B Core IgM Ab Negative Hepatitis C Antibody Negative Assessment & Plan - Assessment and Plan (Free Text) Plan: L nare NG tube in place. NPO. Per Dr. Mark Obrien, lactic acid levels and renal function worsening, pt may undergo bowel surgery today. GI/VTE prophlyaxis. Consult: GI - Dr. Bryan Surgery - Dr. Anil Flores ID - Dr. Leif Flores - Dr. Flynn Reviewed: CT abd/pelvis = distal small bowel obstruction, L inguinal hernia CXR = WNL US abd = hepatic steatosis MRCP = SBO w/ incarated L inguinal hernia containing bowel loop and fluid BLE doppler = negative - Date & Time Date: 10/28/17 Time: 11:00 <Krystle Monte - Last Filed: 10/29/17 10:51> Results - Vital Signs Recent Vital Signs: Last Vital Signs Temp 99.1 F 10/29/17 07:30 Pulse 95 H 10/29/17 07:30 Resp 22 10/29/17 07:30 BP 154/62 H 10/29/17 07:30 Pulse Ox 94 L 10/29/17 07:30 - Labs Result Diagrams: 10/29/17 06:00 10/29/17 06:00 Labs: Laboratory Results - last 24 hr 10/28/17 10/28/17 10/28/17 06:30 16:07 16:07 WBC 6.7 RBC 3.52 Hgb 11.4 L Hct 35.4 L MCV 100.6 MCH 32.4 MCHC 32.2 RDW 16.4 H Plt Count 123 MPV 11.2 H Gran % 68.9 H Lymph % (Auto) 14.7 L [place] % (Auto) 15.3 H Eos % (Auto) 1.0 L Baso % (Auto) 0.1 Gran # 4.60 Lymph # (Auto) 1.0 L [place] # (Auto) 1.0 H Eos # (Auto) 0.1 Baso # (Auto) 0.01 PT INR APTT Sodium 144 Potassium 3.5 L Chloride 107 Carbon Dioxide 27 Anion Gap 14 BUN 55 H Creatinine 1.8 H Est GFR ( Amer) 33 Est GFR (Non-Af Amer) 27 Random Glucose 117 H Lactic Acid Calcium 8.7 Total Bilirubin AST ALT Alkaline Phosphatase Total Protein Albumin Globulin Albumin/Globulin Ratio Hepatitis A IgM Ab Negative Hep Bs Antigen Negative Hep B Core IgM Ab Negative Hepatitis C Antibody Negative 10/28/17 10/29/17 10/29/17 16:07 06:00 06:00 WBC 7.1 RBC 3.70 Hgb 11.9 L Hct 37.0 MCV 100.0 MCH 32.2 MCHC 32.2 RDW 16.4 H Plt Count 115 L MPV 11.5 H Gran % 66.6 Lymph % (Auto) 15.1 L [place] % (Auto) 16.7 H Eos % (Auto) 1.3 L Baso % (Auto) 0.3 Gran # 4.71 Lymph # (Auto) 1.1 L [place] # (Auto) 1.2 H Eos # (Auto) 0.1 Baso # (Auto) 0.02 PT 16.1 H INR 1.39 H APTT 28.6 Sodium Potassium Chloride Carbon Dioxide Anion Gap BUN Creatinine Est GFR ( Amer) Est GFR (Non-Af Amer) Random Glucose Lactic Acid 4.8 H* Calcium Total Bilirubin AST ALT Alkaline Phosphatase Total Protein Albumin Globulin Albumin/Globulin Ratio Hepatitis A IgM Ab Hep Bs Antigen Hep B Core IgM Ab Hepatitis C Antibody 10/29/17 10/29/17 06:00 06:00 WBC RBC Hgb Hct MCV MCH MCHC RDW Plt Count MPV Gran % Lymph % (Auto) [place] % (Auto) Eos % (Auto) Baso % (Auto) Gran # Lymph # (Auto) [place] # (Auto) Eos # (Auto) Baso # (Auto) PT INR APTT Sodium 147 Potassium 3.5 L Chloride 110 H Carbon Dioxide 28 Anion Gap 12 BUN 48 H Creatinine 1.2 Est GFR ( Amer) 52 Est GFR (Non-Af Amer) 43 Random Glucose 117 H Lactic Acid 2.1 Calcium 8.5 Total Bilirubin 1.7 H AST 30 ALT 29 Alkaline Phosphatase 94 Total Protein 5.5 L Albumin 2.4 L Globulin 3.0 Albumin/Globulin Ratio 0.8 L Hepatitis A IgM Ab Hep Bs Antigen Hep B Core IgM Ab Hepatitis C Antibody Assessment & Plan - Assessment and Plan (Free Text) Plan: 82 yr female, American speaking only w/ history of previous colon surgery (dates unknown). She is AAOx3 but poor historian. She reports having diarrhea and n/v x 2 days. Denies any fever, chills, chest pain, shortness of breath, or urinary problems . pt is seen and examined at bed side , looking comfortable , agreed all above , will cont. same treatment , d/d with dr levy . will f/u
--- NOTE | 2017-10-28 16:02 | CARD ---
APPROVED REPORT EKG Measurement Heart [id number] ID [id number] <Conclusion> Normal sinus rhythm Possible Left atrial enlargement Right bundle branch block Abnormal ECG
[2017-10-28 16:14] LABS: BASO # 0.01 K/mm3 (0.0-2.0); BASO % 0.1 % (0.0-3.0); EOS # 0.1 (0.0-0.7); GRAN # 4.6 (1.4-6.5); GRAN % 68.9 % (50.0-68.0); HEMOGLOBIN 11.4 g/dL (12.0-16.0); LYMPH % 14.7 % (22.0-35.0); MEAN CELL VOLUME 100.6 fl (80.0-105.0); MEAN CORPUSCULAR HEMOGLOBIN 32.4 pg (25.0-35.0); MEAN CORPUSCULAR HGB CONC 32.2 g/dl (31.0-37.0); MEAN PLATELET VOLUME 11.2 fl (7.0-11.0); MONO % 15.3 % (1.0-6.0); RBC 3.52 10^6/uL (3.5-6.1); RED CELL DISTRIBUTION WIDTH 16.4 % (11.5-14.5); WHITE BLOOD COUNT 6.7 10^3/ul (4.5-11.0)
[2017-10-28 16:27] LABS: CALCIUM 8.7 mg/dL (8.4-10.5)
[2017-10-28] MEDS ORDERED: Bupivacaine 0.5% Inj(30mL) ONE (17:47)
[2017-10-28] MEDS ORDERED: metroNIDAZOLE IV 500 mg/100 ml 500 MG/100 ML BAG ONE (17:47)
[2017-10-28] MEDS ORDERED: Oxychlorosene Topical 2 gm Packet TOP ONE (17:47)
[2017-10-28] MEDS ORDERED: Midazolam 2 MG/2 ML VIAL ONE (17:59)
[2017-10-28] MEDS ORDERED: Etomidate 20 mg/10ml Inj IV ONE (18:00)
[2017-10-28] MEDS ORDERED: Rocuronium 10 mg/ml (5 ml) ONE (18:00)
[2017-10-28] MEDS ORDERED: HYDROmorphone 0.5 mg/0.5 ml ISec IVP PRN ×2 (18:24→19:31)
[2017-10-28] MEDS ORDERED: Sodium Chloride 0.9% 1,000 ML IV SCH (18:30)
[2017-10-28] MEDS ORDERED: Neostigmine Methylsulfate 3mg/3ml Syringe IV ONE (19:09)
[2017-10-28] MEDS ORDERED: Glycopyrrolate 0.2 mg/ml (2ml vial) ONE (19:09)
--- NOTE | 2017-10-28 19:35 | PCM.SURG1 ---
Surgeon's Initial Post Op Note - Surgeon's Notes Surgeon: Dr. Flores Metal Container Maker: Anna PGY3; Clayton PGY1 Type of Anesthesia: General Endo, Local Anesthesia Administered By: Dr. Jarod Silva Pre-Operative Diagnosis: Small Bowel Obstruction Operative Findings: Left Inguinal Hernia. Viable small bowel. Patent small bowel -to-colonic Anastamosis. One band adhesion Post-Operative Diagnosis: same Operation Performed: Exploratory Laparotomy; Examination of entire small bowel; Adhesiolysis; Left inguinal herniorrhapy Specimen/Specimens Removed: Wound culture of peritoneal fluid Estimated Blood Loss: EBL {In ML}: 20 Blood Products Given: N/A Drains Used: No Drains Post-Op Condition: Fair Date of Surgery/Procedure: 10/28/17 Time of Surgery/Procedure: 19:35
[2017-10-28] MEDS ORDERED: Lactated Ringer's 1,000 ML IV SCH (19:45)
[2017-10-28] MEDS: ceFAZolin 1 gm in NS 1 GM/100 ML BAG IVPB SCH (21:33)
[2017-10-28] MEDS: metroNIDAZOLE IV 500 mg/100 ml 500 MG/100 ML BAG IVPB SCH (22:38)
--- NOTE | 2017-10-29 04:02 | CON ---
DATE: 10/28/2017 HISTORY OF PRESENT ILLNESS: This patient was seen and evaluated earlier. This is an 82-year-old patient with a past medical history of anal carcinoma status post radiation, chemo, had a diverting colostomy in 2012. The patient did have prolapse of colostomy, had a surgery, has had a partial colon resection, status post right colon resection in 2012, who was admitted with abdominal pain for two days and episodes of vomiting brown fluid. The patient was found to have a small bowel obstruction with inguinal hernia on the left side. It was reduced. The patient had an NG tube decompression. Feeling now slightly comfortable on examination. PAST MEDICAL HISTORY: Significant as above. FAMILY HISTORY: Noncontributory. SOCIAL HISTORY: Denies smoking or alcohol. REVIEW OF SYSTEMS: Positive as above. Other systems reviewed. PHYSICAL EXAMINATION: GENERAL: The patient is lying on the bed, not in acute distress. VITAL SIGNS: 98.3, blood pressure 109/40, pulse 84, respirations 18. HEENT: Atraumatic, anicteric. NECK: Supple. HEART: S1 and S2 heard. LUNGS: Bilateral air entry present. ABDOMEN: Softly distended, reduced hernia. EXTREMITIES: No cyanosis, no clubbing. The patient does have an NG tube. NEUROLOGICAL: Alert, oriented, moves all the extremities. LABORATORY DATA: Hemoglobin 11.4, hematocrit 35.4, WBC 6.7, platelets 123. BUN 55, creatinine 1.8. IMPRESSION: 1. This 82-year-old patient is admitted with a small bowel obstruction, inguinal hernia reduced. The patient has been a nasogastric tube decompression. 2. Acute kidney injury. 3. Anemia. 4. History of anal carcinoma status post radiation, chemo, colostomy, reversal of the colostomy, status post right hemicolectomy. RECOMMENDATIONS: 1. Continue NG tube decompression. 2. Abdominal x-ray followup. 3. Surgical followup. Thank you very much for allowing us to participate in the care of the patient. We will continue to closely follow up her care and suggest further management based on the clinical course. Maribell Bryan MD [facility] # [id number]
[2017-10-29] MEDS: ceFAZolin 1 gm in NS 1 GM/100 ML BAG IVPB SCH ×2 (05:38→14:06)
[2017-10-29] MEDS: metroNIDAZOLE IV 500 mg/100 ml 500 MG/100 ML BAG IVPB SCH ×3 (05:39→22:40)
[2017-10-29 06:49] LABS: BASO # 0.02 K/mm3 (0.0-2.0); BASO % 0.3 % (0.0-3.0); EOS # 0.1 (0.0-0.7); EOS % 1.3 % (1.5-5.0); GRAN # 4.71 (1.4-6.5); GRAN % 66.6 % (50.0-68.0); HEMOGLOBIN 11.9 g/dL (12.0-16.0); LYMPH # 1.1 (1.2-3.4); LYMPH % 15.1 % (22.0-35.0); MEAN CORPUSCULAR HEMOGLOBIN 32.2 pg (25.0-35.0); MEAN CORPUSCULAR HGB CONC 32.2 g/dl (31.0-37.0); MEAN PLATELET VOLUME 11.5 fl (7.0-11.0); MONO # 1.2 (0.1-0.6); MONO % 16.7 % (1.0-6.0); RBC 3.7 10^6/uL (3.5-6.1); RED CELL DISTRIBUTION WIDTH 16.4 % (11.5-14.5); WHITE BLOOD COUNT 7.1 10^3/ul (4.5-11.0)
[2017-10-29 07:13] LABS: INR 1.39 (0.93-1.08); PARTIAL THROMBOPLASTIN TIME 28.6 Seconds (25.1-36.5); PROTHROMBIN TIME 16.1 SECONDS (9.4-12.5)
[2017-10-29 08:20] LABS: ALB/GLOB RATIO 0.8 (1.1-1.8); ALBUMIN 2.4 g/dL (3.0-4.8); CALCIUM 8.5 mg/dL (8.4-10.5)
[2017-10-29] MEDS ORDERED: Lactated Ringer's 1,000 ML IV SCH (08:29)
--- NOTE | 2017-10-29 08:36 | RAD ---
HISTORY: NGT placement COMPARISON: 10/27/2017. FINDINGS: The nasogastric tube terminates in the stomach. The right MediPort terminates at the cavoatrial junction. LUNGS: There is mild pulmonary venous congestion. There is interval development of left lower lobe airspace disease. PLEURA: No significant pleural effusion identified, no pneumothorax apparent. CARDIOVASCULAR: Again seen is borderline cardiomegaly. There is unfolding of the aorta. Atherosclerotic aortic arch calcifications are present. OSSEOUS STRUCTURES: No significant abnormalities. VISUALIZED UPPER ABDOMEN: Normal. OTHER FINDINGS: None. IMPRESSION: Nasogastric tube terminates in the stomach. Interval development of left lower lobe atelectasis/ pneumonia. Follow-up is advised.
[2017-10-29] MEDS ORDERED: HYDROmorphone 0.5 mg/0.5 ml ISec IVP PRN (10:09)
--- NOTE | 2017-10-29 10:35 | CP.PCM.PN ---
Subjective - Date & Time of Evaluation Date of Evaluation: 10/29/17 Time of Evaluation: 06:50 - Subjective Subjective: Patient seen and examined at bedside. Patient reports pain in her left lower abdomen. Patient had minimal output through her NGT overnight but she was pulling on the NGT so it was all the way in the stomach. NGT was advanced by surgery team and flushed with air with increase in output Denies any nausea or vomiting. Objective - Vital Signs/Intake and Output Vital Signs (last 24 hours): Temp Pulse Resp BP Pulse Ox 99.1 F 95 H 22 154/62 H 94 L 10/29/17 07:30 10/29/17 07:30 10/29/17 07:30 10/29/17 07:30 10/29/17 07:30 Intake and Output: 10/29/17 10/29/17 06:59 18:59 Intake Total 75 1170 Output Total 300 271 Balance -225 899 - Medications Medications: Current Medications Heparin Sodium (Porcine) (Heparin) 5,000 units SC Q12 SARAH PRN Reason: Protocol Hydromorphone HCl (Dilaudid) 0.25 mg IVP Q6H PRN PRN Reason: Pain, moderate (4-7) Metronidazole (Flagyl) 500 mg in 100 mls @ 100 mls/hr IVPB Q8 [facility] PRN Reason: Protocol Stop: 10/29/17 22:01 Last Admin: 10/29/17 05:39 Dose: 100 mls/hr Cefazolin Sodium (Ancef 1gm In Ns) 1 gm in 100 mls @ 100 mls/hr IVPB Q8 [facility] Stop: 10/29/17 14:59 Last Admin: 10/29/17 05:38 Dose: 100 mls/hr Lactated Ringer's (Lactated Ringer's) 1,000 mls @ 150 mls/hr IV .Q6H40M [facility] Ondansetron HCl (Zofran Inj) 4 mg IVP Q4H PRN PRN Reason: Nausea/Vomiting Pantoprazole Sodium (Protonix Inj) 40 mg IVP DAILY [facility] Last Admin: 10/28/17 09:23 Dose: 40 mg - Labs Labs: 10/29/17 06:00 10/29/17 06:00 PT 16.1 SECONDS (9.4-12.5) H 10/29/17 06:00 INR 1.39 (0.93-1.08) H 10/29/17 06:00 APTT 28.6 Seconds (25.1-36.5) 10/29/17 06:00 - Constitutional Appears: Non-toxic, No Acute Distress - Head Exam Head Exam: ATRAUMATIC, NORMOCEPHALIC - Eye Exam Eye Exam: Normal appearance, Scleral icterus. absent: Conjunctival injection - ENT Exam ENT Exam: Mucous Membranes Dry, Normal Oropharynx - Respiratory Exam Respiratory Exam: NORMAL BREATHING PATTERN. absent: Accessory Muscle Use, Respiratory Distress - GI/Abdominal Exam GI & Abdominal Exam: Distended (mild), Soft, Tenderness (LLQ, brendon-incisional) Additional comments: incision well approximated by neptali, no durainage or bleeding or erythema - Extremities Exam Extremities Exam: absent: Calf Tenderness, Pedal Edema - Neurological Exam Neurological Exam: Alert, Awake - Psychiatric Exam Psychiatric exam: Normal Affect, Normal Mood - Skin Skin Exam: Dry, Normal Color, Warm Assessment and Plan - Assessment and Plan (Free Text) Assessment: 82F POD#1 s/p Exploratory Laparotomy; Examination of entire small bowel; Adhesiolysis; Left inguinal herniorrhapy Plan: -NPO -NGT to continue low wall suction -IVF -PRN pain and nausea medication -trend CBC/CMP -GI ppx, DVT ppx -strict urine and NGT output -Continue dominguez catheter until cleared for D/C by Dr. Flores Discussed with Dr. Mark Cade, PGY2
--- NOTE | 2017-10-29 17:09 | CP.PCM.PN ---
<Ijeoma Clemente - Last Filed: 10/29/17 17:08> Subjective - Date & Time of Evaluation Date of Evaluation: 10/29/17 Time of Evaluation: 10:45 - Subjective Subjective: Seen and examined earlier today, chart reviewed. Postop day #14 exploratory laparoscopy with lysis of adhesion and repair of incarcerated left inguinal hernia. Patient is awake and alert with NG tube. No reports of nausea or vomiting. Patient denies pain. Objective - Vital Signs/Intake and Output Vital Signs (last 24 hours): Temp Pulse Resp BP Pulse Ox 99.1 F 95 H 22 154/62 H 94 L 10/29/17 07:30 10/29/17 07:30 10/29/17 07:30 10/29/17 07:30 10/29/17 07:30 Intake and Output: 10/29/17 10/29/17 06:59 18:59 Intake Total 75 1170 Output Total 300 721 Balance -225 449 - Medications Medications: Current Medications Heparin Sodium (Porcine) (Heparin) 5,000 units SC Q12 [facility] PRN Reason: Protocol Last Admin: 10/29/17 10:52 Dose: 5,000 units Metronidazole (Flagyl) 500 mg in 100 mls @ 100 mls/hr IVPB Q8 [facility] PRN Reason: Protocol Stop: 10/29/17 22:01 Last Admin: 10/29/17 14:06 Dose: 100 mls/hr Lactated Ringer's (Lactated Ringer's) 1,000 mls @ 150 mls/hr IV .Q6H40M [facility] Morphine Sulfate (Morphine) 1.5 mg IVP Q6H PRN PRN Reason: Pain, moderate (4-7) Ondansetron HCl (Zofran Inj) 4 mg IVP Q4H PRN PRN Reason: Nausea/Vomiting Pantoprazole Sodium (Protonix Inj) 40 mg IVP DAILY [facility] Last Admin: 10/29/17 10:52 Dose: 40 mg - Labs Labs: 10/29/17 06:00 10/29/17 06:00 PT 16.1 SECONDS (9.4-12.5) H 10/29/17 06:00 INR 1.39 (0.93-1.08) H 10/29/17 06:00 APTT 28.6 Seconds (25.1-36.5) 10/29/17 06:00 - Constitutional Appears: No Acute Distress - Eye Exam Eye Exam: Normal appearance. absent: Scleral icterus - ENT Exam ENT Exam: Mucous Membranes Moist - Respiratory Exam Respiratory Exam: NORMAL BREATHING PATTERN. absent: Respiratory Distress - Cardiovascular Exam Cardiovascular Exam: +S1, +S2 - GI/Abdominal Exam GI & Abdominal Exam: Soft, Normal Bowel Sounds. absent: Guarding, Tenderness, Rebound Additional comments: abdominal dressing dry and intact nontender on palpation - Extremities Exam Extremities Exam: absent: Calf Tenderness, Pedal Edema - Neurological Exam Neurological Exam: Alert, Awake - Skin Skin Exam: Dry, Warm Assessment and Plan - Assessment and Plan (Free Text) Assessment: Assessment: Small bowel obstruction status post exploratory laparoscopy with lysis of adhesion and repair of incarcerated left inguinal hernia History of anal cancer Anemia Acute renal failure Plan: Nothing by mouth, diet as per surgery Monitor I&Ohe Continue IV fluids for hydration DVT prophylaxis, on heparin subcutaneous Continue PPI Monitor H&H and for overt GI bleed Seen and discussed with Dr. Bryan. <Maribell Bryan V - Last Filed: 10/29/17 23:54> Objective - Vital Signs/Intake and Output Vital Signs (last 24 hours): Temp Pulse Resp BP Pulse Ox 100.6 F H 96 H 20 157/75 H 94 L 10/29/17 16:00 10/29/17 16:00 10/29/17 16:00 10/29/17 16:00 10/29/17 16:00 Intake and Output: 10/29/17 10/30/17 18:59 06:59 Intake Total 2670 0 Output Total 896 300 Balance 1774 -300 - Medications Medications: Current Medications Acetaminophen (Tylenol 650 Mg Supp) 650 mg RC Q4H PRN PRN Reason: Fever >100.4 F Albuterol/Ipratropium (Duoneb 3 Mg/0.5 Mg (3 Ml) Ud) 3 ml IH [id number] [facility] Heparin Sodium (Porcine) (Heparin) 5,000 units SC Q12 [facility] PRN Reason: Protocol Last Admin: 10/29/17 22:40 Dose: 5,000 units Lactated Ringer's (Lactated Ringer's) 1,000 mls @ 150 mls/hr IV .Q6H40M [facility] Last Admin: 10/29/17 22:33 Dose: 150 mls/hr Morphine Sulfate (Morphine) 1.5 mg IVP Q6H PRN PRN Reason: Pain, moderate (4-7) Ondansetron HCl (Zofran Inj) 4 mg IVP Q4H PRN PRN Reason: Nausea/Vomiting Pantoprazole Sodium (Protonix Inj) 40 mg IVP DAILY [facility] Last Admin: 10/29/17 10:52 Dose: 40 mg - Labs Labs: 10/29/17 06:00 10/29/17 06:00 PT 16.1 SECONDS (9.4-12.5) H 10/29/17 06:00 INR 1.39 (0.93-1.08) H 10/29/17 06:00 APTT 28.6 Seconds (25.1-36.5) 10/29/17 06:00 Attending/Attestation - Attestation I have personally seen and examined this patient.: Yes I have fully participated in the care of the patient.: Yes I have reviewed all pertinent clinical information, including history, physical exam and plan: Yes Notes (Text): This is an addendum to GI progress report dictated by Ijeoma Clemente APN.The patient was seen and examined earlier. Medical records, lab studies, imagings were reviewed. Last 24 hours events reviewed. Agreed with the above treatment plan as outlined in Ijeoma Clemente APN's notes the with the addition of the following 10/29/17 23:53
--- NOTE | 2017-10-29 18:09 | PN ---
DATE: SUBJECTIVE: Patient is seen and examined at the bedside; complaining about abdominal pain, still has NG tube with suction. No fever, no chills. Patient is a poor historian. No headache, no dizziness. No swelling of the leg. PHYSICAL EXAMINATION: VITAL SIGNS: Temperature 99.1, T-max 99.7, pulse 95, blood pressure 154/62, respiratory rate 20. HEENT: Head: Normocephalic, atraumatic. Eyes: PERRLA. Extraocular muscles intact. Conjunctivae clear. Nose patent. Having NG tube. Mucous membranes are moist. NECK: Supple. No carotid bruit. No JVD or thyromegaly. CHEST: Bilaterally symmetrical. HEART: S1 and S2, positive. LUNGS: Clear to auscultation. ABDOMEN: Soft, tender at surgical place. EXTREMITIES: No edema, no cyanosis. MEDICATIONS: Ancef, Dilaudid, Flagyl, heparin, Ringer lactate, Protonix, Zofran. LABORATORY DATA: White blood cells 7.1, hemoglobin 11.9, hematocrit 37.0, platelets 115. Sodium 147, potassium 3.5, BUN 48, creatinine 1.2, random glucose 117. ASSESSMENT AND PLAN: Mrs. Tawny Bradford is an 82-year-old lady with anemia; thrombocytopenia; hypokalemia, replaced; hyperchloremia; hyperglycemia; lactic acid is increased; abnormal liver function tests; urinary tract infection. Hepatitis profile is negative. Went for surgery yesterday, left inguinal hernia repair, had exploratory laparotomy, adenolysis, left inguinal herniorrhaphy, wound culture sent by Dr. Flores. Discussion done with Dr. Anil Flores, seen by GI, Dr. Maribell Bryan. Patient had anal carcinoma, status post radiation, chemotherapy, and working colostomy in 2012; prolapse of colostomy, had a surgery done, had partial colon resection; status post right colon resection in 2012. Continue NG suction for decompression. Abdominal x-ray for followup, surgical followup. We will follow up. Krystle Monte MD SABA
[2017-10-30] MEDS: Albuterol-Ipratrop 3 mg / 0.5 (3 ml) UD IH SCH ×4 (02:21→20:50)
[2017-10-30 07:15] LABS: MEAN CELL VOLUME 100.8 fl (80.0-105.0); MEAN CORPUSCULAR HEMOGLOBIN 32.5 pg (25.0-35.0); MEAN CORPUSCULAR HGB CONC 32.3 g/dl (31.0-37.0); MEAN PLATELET VOLUME 10.9 fl (7.0-11.0); RBC 3.69 10^6/uL (3.5-6.1); RED CELL DISTRIBUTION WIDTH 16.6 % (11.5-14.5); WHITE BLOOD COUNT 7.4 10^3/ul (4.5-11.0)
--- NOTE | 2017-10-30 07:17 | CON ---
DATE: 10/29/2017 REFERRING PHYSICIAN: Dr. Monte. REASON FOR CONSULT: Left lower lobe pneumonia. HISTORY OF PRESENT ILLNESS: This is an 82-year-old female with past medical history significant for rectal carcinoma, been on radiation and chemotherapy, has a colostomy working well, history of GERD who was brought into ER by the family with abdominal pain, found to have small bowel obstruction and also left inguinal hernia, incarcerated, underwent surgery with lysis of adhesion, hernia repair, presently lying in the bed and nasogastric tube, has abdominal pain, family at bedside. Chest x-ray show left lower lobe pneumonia. No dysuria. No leg pain or leg swelling. PAST MEDICAL HISTORY: Rectal carcinoma, history of radiation and chemotherapy, colostomy and as per history of present illness. ALLERGIES: NONE KNOWN. SOCIAL HISTORY: Nonsmoker, nondrinker. FAMILY HISTORY: No significant cardiopulmonary disease reported. MEDICATIONS: She is on heparin 5000 international units subcutaneously q.12h., lactated Ringer 150 mL/hour, morphine 1.5 mg q. 6h. p.r.n., Protonix 40 mg daily, Zofran on p.r.n. basis. REVIEW OF SYSTEMS: No headache, no rhinitis, not much cough. No chest pain. Has abdominal pain. No dysuria. No leg pain or leg swelling. PHYSICAL EXAMINATION GENERAL: Lying in the bed, in no acute distress. VITAL SIGNS: Temperature is 99, heart rate is 95, respiratory rate is 20, blood pressure 154/62, pulse ox 99% on 3 liters nasal cannula. HEENT: Moist mucous membranes. Small oral cavity. Crowded airway. NECK: Supple. No JVD. LUNGS: Has a decreased breath at the bases, scattered rhonchi. HEART: S1, S2. ABDOMEN: Positive bowel sounds, decreased diffuse tenderness. EXTREMITIES: There is no edema. NEUROLOGIC: Awake and alert. Follows simple commands. DATA: Laboratory data shows hemoglobin 11.9, hematocrit 37.2, WBC 7.1, platelets is 115,000. INR 1.39. PTT 29. Sodium 147, potassium 3.5, chloride 110, bicarbonate 28, BUN 48, creatinine 1.2, glucose 117, lactic acid is 2.6, calcium is 8.5, total bilirubin 1.7, AST 30, ALT 29, alkaline phosphatase is 94. Albumin is 2.4. Urinalysis shows WBCs 2 to 5. Microbiology: Cultures are pending. Chest x-ray shows left lower lobe infiltrate. IMPRESSION AND PLAN: Status post laparotomy with left inguinal hernia repair, lysis of adhesion, left lower lobe infiltrate, history of rectal carcinoma, electrolyte imbalance, anemia, may have a component of sleep apnea syndrome. Spoke to the patient's daughter at bedside. All the questions answered. I agree with the present treatment. Continue gastric and DVT prophylaxis. Incentive spirometer. Keep head a 45 degrees. Sleep apnea precaution. We will order proBNP and procalcitonin for the morning. Add inhaled bronchodilator. Thank you and we will follow with you Ken Cabrera MD
[2017-10-30 07:34] LABS: B-TYPE NATRIURETIC PEPTIDE 1160 pg/mL (0-450)
[2017-10-30 07:44] LABS: ALB/GLOB RATIO 0.7 (1.1-1.8); ALBUMIN 2.3 g/dL (3.0-4.8); ALT/SGPT 29 U/L (7-56); AST/SGOT 44 U/L (14-36); BLOOD UREA NITROGEN 31 mg/dL (7-21); CALCIUM 8.4 mg/dL (8.4-10.5); GFR AFRICAN-AMERICAN > 60; GFR NON-AFRICAN AMERICAN > 60
[2017-10-30] MEDS: Dextrose 5%/0.45% NS 1,000 ML IV SCH ×2 (11:52→22:09)
--- NOTE | 2017-10-30 13:15 | CP.PCM.PN ---
<Irvin,Kovil V - Last Filed: 10/30/17 23:18> Objective - Vital Signs/Intake and Output Vital Signs (last 24 hours): Temp Pulse Resp BP Pulse Ox 98.7 F 61 20 125/67 98 10/30/17 20:52 10/30/17 16:00 10/30/17 16:00 10/30/17 16:00 10/30/17 16:00 Intake and Output: 10/30/17 10/31/17 18:59 06:59 Intake Total 0 Output Total 300 Balance -300 - Medications Medications: Current Medications Acetaminophen (Tylenol 650 Mg Supp) 650 mg RC Q4H PRN PRN Reason: Fever >100.4 F Last Admin: 10/30/17 03:05 Dose: 650 mg Albuterol/Ipratropium (Duoneb 3 Mg/0.5 Mg (3 Ml) Ud) 3 ml IH [id number] [facility] Last Admin: 10/30/17 20:50 Dose: 3 ml Heparin Sodium (Porcine) (Heparin) 5,000 units SC Q12 [facility] PRN Reason: Protocol Last Admin: 10/30/17 21:10 Dose: 5,000 units Dextrose/Sodium Chloride (Dextrose 5%/0.45% Ns 1000 Ml) 1,000 mls @ 115 mls/hr IV .Q8H42M [facility] Last Admin: 10/30/17 22:09 Dose: 115 mls/hr Cefepime HCl (Maxipime 1gm) 1 gm in 100 mls @ 100 mls/hr IVPB Q24H [facility] PRN Reason: Protocol Last Admin: 10/30/17 22:16 Dose: 100 mls/hr Morphine Sulfate (Morphine) 1.5 mg IVP Q6H PRN PRN Reason: Pain, moderate (4-7) Ondansetron HCl (Zofran Inj) 4 mg IVP Q4H PRN PRN Reason: Nausea/Vomiting Pantoprazole Sodium (Protonix Inj) 40 mg IVP DAILY [facility] Last Admin: 10/30/17 11:53 Dose: 40 mg - Labs Labs: 10/30/17 06:45 10/30/17 06:45 PT 16.1 SECONDS (9.4-12.5) H 10/29/17 06:00 INR 1.39 (0.93-1.08) H 10/29/17 06:00 APTT 28.6 Seconds (25.1-36.5) 10/29/17 06:00 Attending/Attestation - Attestation I have personally seen and examined this patient.: Yes I have fully participated in the care of the patient.: Yes I have reviewed all pertinent clinical information, including history, physical exam and plan: Yes Notes (Text): This is an addendum to GI progress report dictated by Ijeoma Clemente APN.The patient was seen and examined earlier. Medical records, lab studies, imagings were reviewed. Last 24 hours events reviewed. Agreed with the above treatment plan as outlined in Ijeoma Clemente APN's notes the with the addition of the following 10/30/17 23:18 <Ijeoma Clemente - Last Filed: 10/31/17 10:33> Subjective - Date & Time of Evaluation Date of Evaluation: 10/30/17 Time of Evaluation: 10:45 - Subjective Subjective: Seen and examined at the bedside earlier today, patient pulled out N G-tube, patient is awake and alert but said to be confused, no acute distress, patient denies nausea, vomiting or abdominal pain. Remains nothing by mouth. No reports of fever or chills. Objective - Vital Signs/Intake and Output Vital Signs (last 24 hours): Temp Pulse Resp BP Pulse Ox 100.2 F H 97 H 22 172/75 H 94 L 10/30/17 07:30 10/30/17 07:30 10/30/17 07:30 10/30/17 07:30 10/30/17 07:30 Intake and Output: 10/30/17 10/30/17 06:59 18:59 Intake Total 0 Output Total 750 Balance -750 - Medications Medications: Current Medications Acetaminophen (Tylenol 650 Mg Supp) 650 mg RC Q4H PRN PRN Reason: Fever >100.4 F Last Admin: 10/30/17 03:05 Dose: 650 mg Albuterol/Ipratropium (Duoneb 3 Mg/0.5 Mg (3 Ml) Ud) 3 ml IH [id number] [facility] Last Admin: 10/30/17 07:12 Dose: 3 ml Heparin Sodium (Porcine) (Heparin) 5,000 units SC Q12 [facility] PRN Reason: Protocol Last Admin: 10/30/17 11:54 Dose: 5,000 units Dextrose/Sodium Chloride (Dextrose 5%/0.45% Ns 1000 Ml) 1,000 mls @ 115 mls/hr IV .Q8H42M [facility] Last Admin: 10/30/17 11:52 Dose: 115 mls/hr Morphine Sulfate (Morphine) 1.5 mg IVP Q6H PRN PRN Reason: Pain, moderate (4-7) Ondansetron HCl (Zofran Inj) 4 mg IVP Q4H PRN PRN Reason: Nausea/Vomiting Pantoprazole Sodium (Protonix Inj) 40 mg IVP DAILY [facility] Last Admin: 10/30/17 11:53 Dose: 40 mg - Labs Labs: 10/30/17 06:45 10/30/17 06:45 PT 16.1 SECONDS (9.4-12.5) H 10/29/17 06:00 INR 1.39 (0.93-1.08) H 10/29/17 06:00 APTT 28.6 Seconds (25.1-36.5) 10/29/17 06:00 - Constitutional Appears: No Acute Distress - Eye Exam Eye Exam: Normal appearance. absent: Scleral icterus - ENT Exam ENT Exam: Mucous Membranes Moist - Respiratory Exam Respiratory Exam: NORMAL BREATHING PATTERN. absent: Respiratory Distress - Cardiovascular Exam Cardiovascular Exam: +S1, +S2 - GI/Abdominal Exam GI & Abdominal Exam: Soft, Tenderness, Normal Bowel Sounds. absent: Guarding, Rebound Additional comments: abd dressing, Dry and intact, non tender - Extremities Exam Extremities Exam: absent: Calf Tenderness - Neurological Exam Neurological Exam: Alert, Awake, Oriented x3 - Skin Skin Exam: Dry, Warm Assessment and Plan - Assessment and Plan (Free Text) Assessment: Assessment: Small bowel obstruction status post exploratory laparoscopy with lysis of adhesion and repair of incarcerated left inguinal hernia History of anal cancer Anemia Acute renal failure Plan: Nothing by mouth, diet as per surgery Monitor I&O Continue IV fluids for hydration DVT prophylaxis, on heparin subcutaneous Continue PPI Monitor H&H and for overt GI bleed Seen and discussed with Dr. Bryan.
--- NOTE | 2017-10-30 14:50 | CP.PCM.PN ---
Subjective - Date & Time of Evaluation Date of Evaluation: 10/30/17 Time of Evaluation: 14:22 - Subjective Subjective: General surgery progress note for Dr. Flores Patient seen and examined at bedside. Per nursing, no bowel movement yet. Patient pulled out her NG tube last night and was getting agitated, was given mitt restraints. Patient is calm now. Doing well, no complaints. Objective - Vital Signs/Intake and Output Vital Signs (last 24 hours): Temp Pulse Resp BP Pulse Ox 100.2 F H 97 H 22 172/75 H 94 L 10/30/17 07:30 10/30/17 07:30 10/30/17 07:30 10/30/17 07:30 10/30/17 07:30 Intake and Output: 10/30/17 10/30/17 06:59 18:59 Intake Total 0 Output Total 750 Balance -750 - Medications Medications: Current Medications Acetaminophen (Tylenol 650 Mg Supp) 650 mg RC Q4H PRN PRN Reason: Fever >100.4 F Last Admin: 10/30/17 03:05 Dose: 650 mg Albuterol/Ipratropium (Duoneb 3 Mg/0.5 Mg (3 Ml) Ud) 3 ml IH [id number] [facility] Last Admin: 10/30/17 13:45 Dose: 3 ml Heparin Sodium (Porcine) (Heparin) 5,000 units SC Q12 [facility] PRN Reason: Protocol Last Admin: 10/30/17 11:54 Dose: 5,000 units Dextrose/Sodium Chloride (Dextrose 5%/0.45% Ns 1000 Ml) 1,000 mls @ 115 mls/hr IV .Q8H42M [facility] Last Admin: 10/30/17 11:52 Dose: 115 mls/hr Morphine Sulfate (Morphine) 1.5 mg IVP Q6H PRN PRN Reason: Pain, moderate (4-7) Ondansetron HCl (Zofran Inj) 4 mg IVP Q4H PRN PRN Reason: Nausea/Vomiting Pantoprazole Sodium (Protonix Inj) 40 mg IVP DAILY [facility] Last Admin: 10/30/17 11:53 Dose: 40 mg - Labs Labs: 10/30/17 06:45 10/30/17 06:45 PT 16.1 SECONDS (9.4-12.5) H 10/29/17 06:00 INR 1.39 (0.93-1.08) H 10/29/17 06:00 APTT 28.6 Seconds (25.1-36.5) 10/29/17 06:00 - Constitutional Appears: Well - Head Exam Head Exam: ATRAUMATIC, NORMAL INSPECTION, NORMOCEPHALIC - Eye Exam Eye Exam: EOMI, Normal appearance, PERRL Pupil Exam: NORMAL ACCOMODATION, PERRL - ENT Exam ENT Exam: Mucous Membranes Moist, Normal Exam - Neck Exam Neck Exam: Full ROM, Normal Inspection. absent: Lymphadenopathy - Respiratory Exam Respiratory Exam: Clear to Ausculation Bilateral, NORMAL BREATHING PATTERN - Cardiovascular Exam Cardiovascular Exam: REGULAR RHYTHM, +S1, +S2. absent: Murmur - GI/Abdominal Exam GI & Abdominal Exam: Soft, Normal Bowel Sounds. absent: Tenderness Additional comments: incision well approximated by neptali, no durainage or bleeding or erythema. brendon-incisional mild tenderness - Rectal Exam Rectal Exam: NORMAL INSPECTION - Exam Exam: Circumcision, NORMAL INSPECTION External exam: NORMAL EXTERNAL EXAM Speculum exam: NORMAL SPECULUM EXAM Bimanual exam: NORMAL BIMANUAL EXAM - Extremities Exam Extremities Exam: Full ROM, Normal Capillary Refill, Normal Inspection. absent : Joint Swelling, Pedal Edema - Back Exam Back Exam: NORMAL INSPECTION - Neurological Exam Neurological Exam: Alert, Awake, CN II-XII Intact, Normal Gait, Oriented x3 - Psychiatric Exam Psychiatric exam: Normal Affect, Normal Mood - Skin Skin Exam: Dry, Intact, Normal Color, Warm Assessment and Plan - Assessment and Plan (Free Text) Assessment: Assessment and Plan 82F POD#1 s/p Exploratory Laparotomy; Examination of entire small bowel; Adhesiolysis; Left inguinal herniorrhapy Plan: -Can advance diet once she passes bowel movement, has not yet passed -NGT to continue low wall suction -IVF -PRN pain and nausea medication -Trend CBC/CMP -GI ppx, DVT ppx -Strict urine and NGT output -Continue dominguez catheter until cleared for D/C by Dr. Flores
[2017-10-30] MEDS: Cefepime 1gm in NS 100ml 1 GM/100 ML BAG IVPB SCH (22:16)
[2017-10-31] MEDS: Morphine 2 mg/ml ISec IVP PRN ×2 (02:52→22:20)
[2017-10-31] MEDS: Albuterol-Ipratrop 3 mg / 0.5 (3 ml) UD IH SCH ×4 (03:00→20:13)
--- NOTE | 2017-10-31 03:57 | PN ---
DATE: SUBJECTIVE: Patient is an 82-year-old female. Patient was seen and examined at the bedside, looking comfortable, but getting periods of confusion. Last night she pulled out her NG tube and was getting agitated. Picked up her IV lines also. Now given mitt restraints. After that patient is calm. Doing well. No complaints. No fever. No chills. PHYSICAL EXAMINATION: VITAL SIGNS: Temperature 98.2, pulse 97, respiratory rate 22, blood pressure 117/75, pulse oximetry 94. HEENT: Head: Normocephalic, atraumatic. Eyes: PERRLA. Extraocular muscles intact. Conjunctivae clear. Nose patent. Mucous membranes moist. NECK: Supple. No carotid bruit, no JVD, no thyromegaly. CHEST: Bilaterally symmetrical. HEART: S1 and S2 positive. LUNGS: Clear to auscultation. ABDOMEN: Soft, tender at surgical site. EXTREMITIES: No edema, no cyanosis. NEUROLOGIC: Patient is awake, alert, but getting episodes of confusion. MEDICATIONS: Tylenol, DuoNeb, heparin, dextrose, morphine sulfate, Zofran, pantoprazole. LABORATORY DATA: White blood cells 7.4, hemoglobin 12.0, hematocrit 37.2, platelets 107. Sodium 152, potassium 3.4, BUN 31, creatinine 0.2, glucose 97. ASSESSMENT AND PLAN: Ms. Tawny Bradford is an 82-year-old lady with hypernatremia, hypokalemia, thrombocytopenia, postoperative day #1 exploratory laparotomy, examination of entire small bowel, adhesiolysis, left inguinal herniorrhaphy. Patient was having nasogastric tube. She pulled it out. 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 Small bowel obstruction, history of anal cancer, anemia, acute renal failure, still is n.p.o. Continue IV fluid for hydration, deep vein thrombosis prophylaxis on heparin. Continue proton pump inhibitor, gastrointestinal prophylaxis. We will follow up. Krystle Monte MD
[2017-10-31 07:18] LABS: HEMOGLOBIN 11.4 g/dL (12.0-16.0); MEAN CELL VOLUME 101.1 fl (80.0-105.0); MEAN CORPUSCULAR HEMOGLOBIN 32.8 pg (25.0-35.0); MEAN CORPUSCULAR HGB CONC 32.4 g/dl (31.0-37.0); MEAN PLATELET VOLUME 12.1 fl (7.0-11.0); RBC 3.48 10^6/uL (3.5-6.1); RED CELL DISTRIBUTION WIDTH 16.7 % (11.5-14.5); WHITE BLOOD COUNT 8.4 10^3/ul (4.5-11.0)
[2017-10-31 07:46] LABS: ALB/GLOB RATIO 0.7 (1.1-1.8); ALBUMIN 2.1 g/dL (3.0-4.8); ALT/SGPT 25 U/L (7-56); AST/SGOT 33 U/L (14-36); BLOOD UREA NITROGEN 23 mg/dL (7-21); CALCIUM 8.1 mg/dL (8.4-10.5); GFR AFRICAN-AMERICAN > 60; GFR NON-AFRICAN AMERICAN > 60
--- NOTE | 2017-10-31 08:48 | PN ---
DATE: 10/30/2017 PULMONARY PROGRESS NOTE REFERRING PHYSICIAN: Dr. Monte. SUBJECTIVE: She is lying in the bed with head at 45 degree. Feels better. No headache, no rhinitis, not much cough. Abdominal pain is improved. No leg pain or leg swelling. OBJECTIVE: GENERAL: In no acute distress. VITAL SIGNS: Temperature is 98, heart rate is 92, respiratory rate is 18, blood pressure 177/80, pulse ox 95% on 2 liters nasal cannula. HEENT: Moist mucous membrane. Crowded airway. Mallampati score is 4. NECK: Supple. No JVD. LUNGS: Have a fair airflow with a few rhonchi. HEART: S1 and S2. ABDOMEN: Positive bowel sounds, midline surgical scar, mild tenderness. EXTREMITIES: No edema. NEUROLOGIC: Awake and alert. Follow simple command. MEDICATIONS: She is on IV fluid D5 half normal saline mL per hour, also DuoNeb q. 6 hours, heparin 5000 international units subcutaneously q.12 hours., morphine 0.5 mg IV q. 6 hours p.r.n., Protonix 40 mg daily, Tylenol p.r.n., and Zofran p.r.n. LABORATORY DATA: Shows hemoglobin 12.0, hematocrit 37.2, WBC 7.4, platelet count is 107,000. Sodium 142, potassium 3.4, chloride 106, bicarbonate 28, BUN 31, creatinine , glucose 97, calcium is 8.4, total bilirubin 0.4, AST 44, ALT 29, alkaline phosphatase is 100, proBNP is 1150. Albumin is 2.3. Procalcitonin is 0.63. Influenza A and B negative. IMPRESSION AND PLAN: Status post laparotomy with left inguinal hernia repair, lysis of adhesion, left lower lobe infiltrate, history of rectal carcinoma, electrolyte imbalance, and anemia. Pulmonary point of view, she is doing okay. Keep head a 45 degrees. Sleep apnea precaution. Avoid sedation. Gastric prophylaxis. Deep vein thrombosis prophylaxis. Incentive spirometer. Procalcitonin is high. We will start her on cefepime. Continue DuoNeb. Thank you and we will follow with you. Ken Cabrera MD
[2017-10-31] MEDS: Dextrose 5%/0.45% NS 1,000 ML IV SCH ×2 (10:19→12:06)
--- NOTE | 2017-10-31 10:34 | CP.PCM.PN ---
<Ijeoma Clemente - Last Filed: 10/31/17 10:34> Subjective - Date & Time of Evaluation Date of Evaluation: 10/31/17 Time of Evaluation: 09:15 - Subjective Subjective: S&E at bedside, chart reviewed, NPO except ice chips, no N/V or reports of abdominal pain.Reported to [facility] gas yesterday, no BM. No acute overnight events reported. Objective - Vital Signs/Intake and Output Vital Signs (last 24 hours): Temp Pulse Resp BP Pulse Ox 98.8 F 84 22 181/80 H 96 10/31/17 07:00 10/31/17 07:00 10/31/17 07:00 10/31/17 07:00 10/31/17 07:00 Intake and Output: 10/31/17 10/31/17 06:59 18:59 Intake Total 0 Output Total 500 Balance -500 - Medications Medications: Current Medications Acetaminophen (Tylenol 650 Mg Supp) 650 mg RC Q4H PRN PRN Reason: Fever >100.4 F Last Admin: 10/30/17 03:05 Dose: 650 mg Albuterol/Ipratropium (Duoneb 3 Mg/0.5 Mg (3 Ml) Ud) 3 ml IH [id number] [facility] Last Admin: 10/31/17 07:34 Dose: 3 ml Heparin Sodium (Porcine) (Heparin) 5,000 units SC Q12 SARAH PRN Reason: Protocol Last Admin: 10/31/17 10:20 Dose: 5,000 units Dextrose/Sodium Chloride (Dextrose 5%/0.45% Ns 1000 Ml) 1,000 mls @ 115 mls/hr IV .[id number] [facility] Last Admin: 10/31/17 10:19 Dose: 115 mls/hr Cefepime HCl (Maxipime 1gm) 1 gm in 100 mls @ 100 mls/hr IVPB Q24H SARAH PRN Reason: Protocol Last Admin: 10/30/17 22:16 Dose: 100 mls/hr Morphine Sulfate (Morphine) 1.5 mg IVP Q6H PRN PRN Reason: Pain, moderate (4-7) Last Admin: 10/31/17 02:52 Dose: 1.5 mg Ondansetron HCl (Zofran Inj) 4 mg IVP Q4H PRN PRN Reason: Nausea/Vomiting Pantoprazole Sodium (Protonix Inj) 40 mg IVP DAILY SARAH Last Admin: 10/31/17 10:20 Dose: 40 mg - Labs Labs: 10/31/17 06:20 10/31/17 06:20 PT 16.1 SECONDS (9.4-12.5) H 10/29/17 06:00 INR 1.39 (0.93-1.08) H 10/29/17 06:00 APTT 28.6 Seconds (25.1-36.5) 10/29/17 06:00 - Constitutional Appears: No Acute Distress - Head Exam Head Exam: NORMOCEPHALIC - Eye Exam Eye Exam: Normal appearance. absent: Scleral icterus - ENT Exam ENT Exam: Mucous Membranes Moist - Neck Exam Neck Exam: Normal Inspection - Respiratory Exam Respiratory Exam: NORMAL BREATHING PATTERN. absent: Respiratory Distress - Cardiovascular Exam Cardiovascular Exam: +S1, +S2 - GI/Abdominal Exam GI & Abdominal Exam: Soft, Normal Bowel Sounds. absent: Guarding, Tenderness, Organomegaly, Rebound Additional comments: incision D&I - Extremities Exam Extremities Exam: Normal Capillary Refill. absent: Calf Tenderness - Neurological Exam Neurological Exam: Alert, Awake - Skin Skin Exam: Dry, Warm Assessment and Plan - Assessment and Plan (Free Text) Assessment: Assessment: Small bowel obstruction status post exploratory laparoscopy with lysis of adhesion and repair of incarcerated left inguinal hernia History of anal cancer Anemia Acute renal failure Plan: Nothing by mouth, diet as per surgery Monitor I&O Continue IV fluids for hydration DVT prophylaxis, on heparin subcutaneous Continue PPI Monitor H&H and for overt GI bleed Seen and discussed with Dr. Bryan. <Maribell Bryan V - Last Filed: 10/31/17 23:26> Objective - Vital Signs/Intake and Output Vital Signs (last 24 hours): Temp Pulse Resp BP Pulse Ox 98 F 82 20 160/78 H 99 10/31/17 16:00 10/31/17 16:00 10/31/17 16:00 10/31/17 16:00 10/31/17 16:00 Intake and Output: 10/31/17 11/01/17 18:59 06:59 Intake Total 240 Balance 240 - Medications Medications: Current Medications Acetaminophen (Tylenol 650 Mg Supp) 650 mg RC Q4H PRN PRN Reason: Fever >100.4 F Last Admin: 10/30/17 03:05 Dose: 650 mg Albuterol/Ipratropium (Duoneb 3 Mg/0.5 Mg (3 Ml) Ud) 3 ml IH [id number] [facility] Last Admin: 10/31/17 20:13 Dose: 3 ml Heparin Sodium (Porcine) (Heparin) 5,000 units SC Q12 SARAH PRN Reason: Protocol Last Admin: 10/31/17 22:00 Dose: 5,000 units Cefepime HCl (Maxipime 1gm) 1 gm in 100 mls @ 100 mls/hr IVPB Q24H SARAH PRN Reason: Protocol Last Admin: 10/31/17 22:00 Dose: 100 mls/hr Dextrose/Sodium Chloride (Dextrose 5%/0.45% Ns 1000 Ml) 1,000 mls @ 75 mls/hr IV .[id number] [facility] Last Admin: 10/31/17 19:51 Dose: 75 mls/hr Morphine Sulfate (Morphine) 1.5 mg IVP Q6H PRN PRN Reason: Pain, moderate (4-7) Last Admin: 10/31/17 22:20 Dose: 1.5 mg Ondansetron HCl (Zofran Inj) 4 mg IVP Q4H PRN PRN Reason: Nausea/Vomiting Pantoprazole Sodium (Protonix Inj) 40 mg IVP DAILY [facility] Last Admin: 10/31/17 10:20 Dose: 40 mg - Labs Labs: 10/31/17 06:20 10/31/17 06:20 PT 16.1 SECONDS (9.4-12.5) H 10/29/17 06:00 INR 1.39 (0.93-1.08) H 10/29/17 06:00 APTT 28.6 Seconds (25.1-36.5) 10/29/17 06:00 Attending/Attestation - Attestation I have personally seen and examined this patient.: Yes I have fully participated in the care of the patient.: Yes I have reviewed all pertinent clinical information, including history, physical exam and plan: Yes Notes (Text): This is an addendum to GI progress report dictated by Ijeoma Clemente APN.The patient was seen and examined earlier. Medical records, lab studies, imagings were reviewed. Last 24 hours events reviewed. Agreed with the above treatment plan as outlined in Ijeoma Clemente APN's notes the with the addition of the following 10/31/17 23:26
--- NOTE | 2017-10-31 14:58 | CP.PCM.PN ---
Subjective - Date & Time of Evaluation Date of Evaluation: 10/31/17 Time of Evaluation: 14:53 - Subjective Subjective: General surgery progress note for Dr. Flores Patient seen and examined at bedside. Patient passed two soft bowel movements as well as gas. Patient does state that she has minor abdominal pain in the RLQ , but she is otherwise doing well. Objective - Vital Signs/Intake and Output Vital Signs (last 24 hours): Temp Pulse Resp BP Pulse Ox 98.8 F 84 22 181/80 H 96 10/31/17 07:00 10/31/17 07:00 10/31/17 07:00 10/31/17 07:00 10/31/17 07:00 Intake and Output: 10/31/17 10/31/17 06:59 18:59 Intake Total 0 Output Total 500 Balance -500 - Medications Medications: Current Medications Acetaminophen (Tylenol 650 Mg Supp) 650 mg RC Q4H PRN PRN Reason: Fever >100.4 F Last Admin: 10/30/17 03:05 Dose: 650 mg Albuterol/Ipratropium (Duoneb 3 Mg/0.5 Mg (3 Ml) Ud) 3 ml IH [id number] [facility] Last Admin: 10/31/17 07:34 Dose: 3 ml Heparin Sodium (Porcine) (Heparin) 5,000 units SC Q12 SARAH PRN Reason: Protocol Last Admin: 10/31/17 10:20 Dose: 5,000 units Dextrose/Sodium Chloride (Dextrose 5%/0.45% Ns 1000 Ml) 1,000 mls @ 115 mls/hr IV .[id number] [facility] Last Admin: 10/31/17 12:06 Dose: Not Given Cefepime HCl (Maxipime 1gm) 1 gm in 100 mls @ 100 mls/hr IVPB Q24H SARAH PRN Reason: Protocol Last Admin: 10/30/17 22:16 Dose: 100 mls/hr Morphine Sulfate (Morphine) 1.5 mg IVP Q6H PRN PRN Reason: Pain, moderate (4-7) Last Admin: 10/31/17 02:52 Dose: 1.5 mg Ondansetron HCl (Zofran Inj) 4 mg IVP Q4H PRN PRN Reason: Nausea/Vomiting Pantoprazole Sodium (Protonix Inj) 40 mg IVP DAILY [facility] Last Admin: 10/31/17 10:20 Dose: 40 mg - Labs Labs: 10/31/17 06:20 10/31/17 06:20 PT 16.1 SECONDS (9.4-12.5) H 10/29/17 06:00 INR 1.39 (0.93-1.08) H 10/29/17 06:00 APTT 28.6 Seconds (25.1-36.5) 10/29/17 06:00 - Constitutional Appears: Well - Head Exam Head Exam: ATRAUMATIC, NORMAL INSPECTION, NORMOCEPHALIC - Eye Exam Eye Exam: EOMI, Normal appearance, PERRL Pupil Exam: NORMAL ACCOMODATION, PERRL - ENT Exam ENT Exam: Mucous Membranes Moist, Normal Exam - Neck Exam Neck Exam: Full ROM, Normal Inspection. absent: Lymphadenopathy - Respiratory Exam Respiratory Exam: Clear to Ausculation Bilateral, NORMAL BREATHING PATTERN - Cardiovascular Exam Cardiovascular Exam: REGULAR RHYTHM, +S1, +S2. absent: Murmur - GI/Abdominal Exam GI & Abdominal Exam: Soft, Normal Bowel Sounds. absent: Tenderness Additional comments: incision well approximated by neptali, no durainage or bleeding or erythema. brendon-incisional mild tenderness - Rectal Exam Rectal Exam: NORMAL INSPECTION - Exam Exam: Circumcision, NORMAL INSPECTION External exam: NORMAL EXTERNAL EXAM Speculum exam: NORMAL SPECULUM EXAM Bimanual exam: NORMAL BIMANUAL EXAM - Extremities Exam Extremities Exam: Full ROM, Normal Capillary Refill, Normal Inspection. absent : Joint Swelling, Pedal Edema - Back Exam Back Exam: NORMAL INSPECTION - Neurological Exam Neurological Exam: Alert, Awake, CN II-XII Intact, Normal Gait, Oriented x3 - Psychiatric Exam Psychiatric exam: Normal Affect, Normal Mood - Skin Skin Exam: Dry, Intact, Normal Color, Warm Assessment and Plan - Assessment and Plan (Free Text) Assessment: Assessment and Plan 82F POD#3 s/p Exploratory Laparotomy; Examination of entire small bowel; Adhesiolysis; Left inguinal herniorrhapy Plan: -Advanced to CLD, has passed bm and gas -PRN pain and nausea medication -Trend CBC/CMP -GI ppx, DVT ppx -Strict urine output -Poole catheter until cleared for D/C by Dr. Flores
[2017-10-31] MEDS ORDERED: Dextrose 5%/0.45% NS 1,000 ML IV SCH (17:56)
[2017-10-31] MEDS: Cefepime 1gm in NS 100ml 1 GM/100 ML BAG IVPB SCH (22:00)
[2017-10-31 22:36] VITALS: RESP 20
[2017-11-01] MEDS: Albuterol-Ipratrop 3 mg / 0.5 (3 ml) UD IH SCH ×4 (02:35→19:47)
[2017-11-01 06:53] LABS: HEMOGLOBIN 11.3 g/dL (12.0-16.0); MEAN CELL VOLUME 99.7 fl (80.0-105.0); MEAN CORPUSCULAR HEMOGLOBIN 32.2 pg (25.0-35.0); MEAN CORPUSCULAR HGB CONC 32.3 g/dl (31.0-37.0); MEAN PLATELET VOLUME 11.3 fl (7.0-11.0); RBC 3.51 10^6/uL (3.5-6.1); RED CELL DISTRIBUTION WIDTH 16.6 % (11.5-14.5); WHITE BLOOD COUNT 9.6 10^3/ul (4.5-11.0)
[2017-11-01 06:59] LABS: ALB/GLOB RATIO 0.7 (1.1-1.8); ALBUMIN 2.1 g/dL (3.0-4.8); ALT/SGPT 29 U/L (7-56); AST/SGOT 31 U/L (14-36); BLOOD UREA NITROGEN 19 mg/dL (7-21); CALCIUM 8.1 mg/dL (8.4-10.5); GFR AFRICAN-AMERICAN > 60; GFR NON-AFRICAN AMERICAN > 60
[2017-11-01 07:54] VITALS: PULSE 89; TEMP 99.2; O2SAT 96
--- NOTE | 2017-11-01 08:57 | PN ---
DATE: 10/31/2017 REFERRING PHYSICIAN: Krystle Monte MD SUBJECTIVE: She is lying in the bed. Nasogastric tube is out. Family is at bedside, feeding her p.o. diet. She feels better. Had a small bowel movement today. No significant cough. No nausea. No vomiting. Mild abdominal pain. OBJECTIVE: GENERAL: In no acute distress. VITAL SIGNS: Temperature is 98, heart rate is 84, respiratory rate is 22, blood pressure 181/80, pulse ox 96% on 2 L nasal cannula. HEENT: Moist mucous membrane. Crowded airway. Mallampati score is 4. NECK: Supple. No JVD. LUNGS: Have fair airflow with rhonchi. HEART: S1 and S2. ABDOMEN: Soft. Positive bowel sounds. Surgical site looks okay. EXTREMITIES: There is no edema. NEUROLOGIC: Awake, alert. Follows simple commands. MEDICATIONS: She is on IV fluid D5 half normal saline 75 mL per hour, DuoNeb q. 6 hours, heparin 5000 units subcu q. 12 hours, cefepime 1 g IV q. 24 hours, morphine 1.5 mg q. 6 hours p.r.n., Protonix 40 mg daily, Tylenol p.r.n. and Zofran on p.r.n. basis. LABORATORY DATA: Shows hemoglobin 11.4, hematocrit 35.2, WBC 8.4, platelet count is 114. Sodium 147, potassium 3.6, chloride 114, bicarbonate 28, BUN 23, creatinine 0.7, glucose is 126, calcium is 8.1. Total bili is 1.1. AST 33, ALT 25, alk phos is 86, albumin is 2.1. Procalcitonin is 0.63. Microbiology, wound culture so far, there is no growth. Urine culture, there is no growth. IMPRESSION AND PLAN: Status post laparotomy with left inguinal hernia repair, lysis of adhesions, left lower lobe pneumonia, history of rectal carcinoma, electrolyte imbalance, and anemia. Started p.o. diet. Continue antibiotics. Keep head at 45 degrees. Bronchodilator. Aspiration precaution. Gastric prophylaxis. Sleep apnea precaution. Out of bed to chair. Followup labs. Thank you and we will follow up with you. Mohammad Rick, MD [facility] # [id number]
--- NOTE | 2017-11-01 09:03 | CP.PCM.PCO ---
Physician Communication Note - Physician Communication Note Physician Communication Note: Rx Diet/Norvasc/Ambulate
--- NOTE | 2017-11-01 09:11 | PN ---
DATE: 10/31/2017 SUBJECTIVE: Patient was seen and examined on 10/31/2017. Patient is n.p.o. except ice chips. No nausea or vomiting reported. Abdominal pain is better. Passed gas yesterday. No bowel movement. No acute events noted overnight. No fever, no chills. No shortness of breath. No dysuria. No hematuria. PHYSICAL EXAMINATION: VITAL SIGNS: Temperature 98.8, pulse oximetry 96. HEENT: Head: Normocephalic, atraumatic. Eyes: PERRLA. Extraocular muscles intact. Conjunctivae clear. Nose patent. NECK: Supple. No carotid bruit, no JVD, no thyromegaly. CHEST: Bilaterally symmetrical. HEART: S1 and S2, positive. LUNGS: Clear to auscultation. ABDOMEN: Soft, tender at surgical place EXTREMITIES: No edema, no cyanosis. NEUROLOGIC: Patient is awake, alert. Obey simple orders. MEDICATIONS: Tylenol, DuoNeb, heparin, dextrose, cefepime, morphine, Zoloft, Protonix. LABORATORY DATA: hemoglobin 11.4, hematocrit 35.2, platelets 114. Sodium 147, potassium 3.3, BUN 23, creatinine 0.7, glucose 156. ASSESSMENT AND PLAN: Ms. Tawny Bradford is an 82-year-old female with anemia, renal insufficiency, thrombocytopenia, hyperglycemia, asthma, bowel obstruction, status post exploratory laparotomy, lysis of adhesion, repair of the incarcerated left inguinal hernia, history of anal cancer, anemia, acute renal failure, improving very well. Nothing by mouth, just using ice chips. Monitoring In's and O's. Continue IV fluid for hydration. Deep vein thrombosis prophylaxis on heparin subcutaneous. Continue proton pump inhibitor. Monitoring hemoglobin and hematocrit and overt gastrointestinal bleeding. Repeat labs. We will follow up. Krystle Monte MD MTDD
--- NOTE | 2017-11-01 09:26 | CP.PCM.PN ---
Subjective - Date & Time of Evaluation Date of Evaluation: 11/01/17 Time of Evaluation: 09:23 - Subjective Subjective: General surgery progress note for Dr. lFores Patient seen and examined at bedside. Patient denies pain at this time, is moving her bowels. No fevers chills shortness of breath. Objective - Vital Signs/Intake and Output Vital Signs (last 24 hours): Temp Pulse Resp BP Pulse Ox 99.2 F 89 20 193/80 H 96 11/01/17 07:53 11/01/17 07:53 11/01/17 07:53 11/01/17 07:53 11/01/17 07:53 Intake and Output: 11/01/17 11/01/17 06:59 18:59 Intake Total 360 Balance 360 - Medications Medications: Current Medications Acetaminophen (Tylenol 650 Mg Supp) 650 mg RC Q4H PRN PRN Reason: Fever >100.4 F Last Admin: 11/01/17 06:47 Dose: 650 mg Albuterol/Ipratropium (Duoneb 3 Mg/0.5 Mg (3 Ml) Ud) 3 ml IH [id number] [facility] Last Admin: 11/01/17 07:26 Dose: 3 ml Amlodipine Besylate (Norvasc) 10 mg PO DAILY [facility] Heparin Sodium (Porcine) (Heparin) 5,000 units SC Q12 SARAH PRN Reason: Protocol Last Admin: 10/31/17 22:00 Dose: 5,000 units Cefepime HCl (Maxipime 1gm) 1 gm in 100 mls @ 100 mls/hr IVPB Q24H SARAH PRN Reason: Protocol Last Admin: 10/31/17 22:00 Dose: 100 mls/hr Dextrose/Sodium Chloride (Dextrose 5%/0.45% Ns 1000 Ml) 1,000 mls @ 75 mls/hr IV .[id number] [facility] Last Admin: 10/31/17 19:51 Dose: 75 mls/hr Morphine Sulfate (Morphine) 1.5 mg IVP Q6H PRN PRN Reason: Pain, moderate (4-7) Last Admin: 10/31/17 22:20 Dose: 1.5 mg Ondansetron HCl (Zofran Inj) 4 mg IVP Q4H PRN PRN Reason: Nausea/Vomiting Pantoprazole Sodium (Protonix Inj) 40 mg IVP DAILY [facility] Last Admin: 10/31/17 10:20 Dose: 40 mg - Labs Labs: 11/01/17 06:15 11/01/17 06:15 PT 16.1 SECONDS (9.4-12.5) H 10/29/17 06:00 INR 1.39 (0.93-1.08) H 10/29/17 06:00 APTT 28.6 Seconds (25.1-36.5) 10/29/17 06:00 - Constitutional Appears: Well - Head Exam Head Exam: ATRAUMATIC, NORMAL INSPECTION, NORMOCEPHALIC - Eye Exam Eye Exam: EOMI, Normal appearance, PERRL Pupil Exam: NORMAL ACCOMODATION, PERRL - ENT Exam ENT Exam: Mucous Membranes Moist, Normal Exam - Neck Exam Neck Exam: Full ROM, Normal Inspection. absent: Lymphadenopathy - Respiratory Exam Respiratory Exam: Clear to Ausculation Bilateral, NORMAL BREATHING PATTERN - Cardiovascular Exam Cardiovascular Exam: REGULAR RHYTHM, +S1, +S2. absent: Murmur - GI/Abdominal Exam GI & Abdominal Exam: Soft, Normal Bowel Sounds. absent: Tenderness Additional comments: incision well approximated by neptali, no durainage or bleeding or erythema. brendon-incisional mild tenderness - Rectal Exam Rectal Exam: NORMAL INSPECTION - Exam Exam: Circumcision, NORMAL INSPECTION External exam: NORMAL EXTERNAL EXAM Speculum exam: NORMAL SPECULUM EXAM Bimanual exam: NORMAL BIMANUAL EXAM - Extremities Exam Extremities Exam: Full ROM, Normal Capillary Refill, Normal Inspection. absent : Joint Swelling, Pedal Edema - Back Exam Back Exam: NORMAL INSPECTION - Neurological Exam Neurological Exam: Alert, Awake, CN II-XII Intact, Normal Gait, Oriented x3 - Psychiatric Exam Psychiatric exam: Normal Affect, Normal Mood - Skin Skin Exam: Dry, Intact, Normal Color, Warm Assessment and Plan - Assessment and Plan (Free Text) Assessment: Assessment and Plan 82F POD#4 s/p Exploratory Laparotomy; Examination of entire small bowel; Adhesiolysis; Left inguinal herniorrhapy Plan: - PT/OT ordered -Advanced to heart healthy diet, has passed bm and gas -PRN pain and nausea medication -Trend CBC/CMP -GI ppx, DVT ppx -Strict urine output -Poole catheter until cleared for D/C by Dr. Flores
[2017-11-01 10:11] VITALS: BP 180/80
--- NOTE | 2017-11-01 16:40 | CP.PCM.PCO ---
Physician Communication Note - Physician Communication Note Physician Communication Note: [facility]
--- NOTE | 2017-11-01 16:45 | CP.PCM.PN ---
<Ijeoma Clemente - Last Filed: 11/01/17 16:45> Subjective - Date & Time of Evaluation Date of Evaluation: 11/01/17 Time of Evaluation: 10:35 - Subjective Subjective: Seen and examined at the bedside earlier today, patient added that to chair, daughter at bedside. Patient reported to have BM yesterday, patient denies nausea, vomiting, or abdominal pain. Diet advanced a heart healthy as per surgery. Objective - Vital Signs/Intake and Output Vital Signs (last 24 hours): Temp Pulse Resp BP Pulse Ox 99.2 F 89 20 180/80 H 96 11/01/17 07:53 11/01/17 07:53 11/01/17 07:53 11/01/17 10:08 11/01/17 07:53 Intake and Output: 11/01/17 11/01/17 06:59 18:59 Intake Total 360 360 Balance 360 360 - Medications Medications: Current Medications Acetaminophen (Tylenol 650 Mg Supp) 650 mg RC Q4H PRN PRN Reason: Fever >100.4 F Last Admin: 11/01/17 06:47 Dose: 650 mg Albuterol/Ipratropium (Duoneb 3 Mg/0.5 Mg (3 Ml) Ud) 3 ml IH [id number] [facility] Last Admin: 11/01/17 13:29 Dose: 3 ml Amlodipine Besylate (Norvasc) 10 mg PO DAILY [facility] Last Admin: 11/01/17 10:08 Dose: 10 mg Heparin Sodium (Porcine) (Heparin) 5,000 units SC Q12 SARAH PRN Reason: Protocol Last Admin: 11/01/17 10:08 Dose: 5,000 units Cefepime HCl (Maxipime 1gm) 1 gm in 100 mls @ 100 mls/hr IVPB Q24H SARAH PRN Reason: Protocol Last Admin: 10/31/17 22:00 Dose: 100 mls/hr Morphine Sulfate (Morphine) 1.5 mg IVP Q6H PRN PRN Reason: Pain, moderate (4-7) Last Admin: 10/31/17 22:20 Dose: 1.5 mg Ondansetron HCl (Zofran Inj) 4 mg IVP Q4H PRN PRN Reason: Nausea/Vomiting Pantoprazole Sodium (Protonix Inj) 40 mg IVP DAILY [facility] Last Admin: 11/01/17 10:08 Dose: 40 mg - Labs Labs: 11/01/17 06:15 11/01/17 06:15 PT 16.1 SECONDS (9.4-12.5) H 10/29/17 06:00 INR 1.39 (0.93-1.08) H 10/29/17 06:00 APTT 28.6 Seconds (25.1-36.5) 10/29/17 06:00 - Constitutional Appears: No Acute Distress - Head Exam Head Exam: NORMOCEPHALIC - Eye Exam Eye Exam: Normal appearance. absent: Scleral icterus - ENT Exam ENT Exam: Mucous Membranes Moist - Neck Exam Neck Exam: Normal Inspection - Respiratory Exam Respiratory Exam: NORMAL BREATHING PATTERN. absent: Respiratory Distress - Cardiovascular Exam Cardiovascular Exam: +S1, +S2 - GI/Abdominal Exam GI & Abdominal Exam: Soft, Normal Bowel Sounds. absent: Guarding, Tenderness, Rebound Additional comments: incision neptali open to air no erythema or drainage - Extremities Exam Extremities Exam: absent: Calf Tenderness, Pedal Edema - Neurological Exam Neurological Exam: Alert, Awake, Oriented x3 - Skin Skin Exam: Dry, Warm Assessment and Plan - Assessment and Plan (Free Text) Assessment: Assessment: Small bowel obstruction status post exploratory laparoscopy with lysis of adhesion and repair of incarcerated left inguinal hernia History of anal cancer Anemia Acute renal failure Plan: diet was advanced a heart healthy Monitor I&O DVT prophylaxis, on heparin subcutaneous Continue PPI Monitor H&H and for overt GI bleed, H&H is stable As per surgery Seen and discussed with Dr. Bryan. <Maribell Bryan V - Last Filed: 11/02/17 01:57> Objective - Vital Signs/Intake and Output Vital Signs (last 24 hours): Temp Pulse Resp BP Pulse Ox 99.2 F 89 20 180/80 H 96 11/01/17 07:53 11/01/17 07:53 11/01/17 07:53 11/01/17 10:08 11/01/17 07:53 Intake and Output: 11/01/17 11/02/17 18:59 06:59 Intake Total 360 Balance 360 - Labs Labs: 11/01/17 06:15 11/01/17 06:15 PT 16.1 SECONDS (9.4-12.5) H 10/29/17 06:00 INR 1.39 (0.93-1.08) H 10/29/17 06:00 APTT 28.6 Seconds (25.1-36.5) 10/29/17 06:00 Attending/Attestation - Attestation I have personally seen and examined this patient.: Yes I have fully participated in the care of the patient.: Yes I have reviewed all pertinent clinical information, including history, physical exam and plan: Yes Notes (Text): This is an addendum to GI progress report dictated by Ijeoma Clemente APN.The patient was seen and examined earlier. Medical records, lab studies, imagings were reviewed. Last 24 hours events reviewed. Agreed with the above treatment plan as outlined in Ijeoma Clemente APN's notes the with the addition of the following 11/02/17 01:57
[2017-11-01] MEDS: Cefepime 1gm in NS 100ml 1 GM/100 ML BAG IVPB SCH (18:40)
--- NOTE | 2017-11-01 23:23 | PN ---
DATE: 11/01/2017 PULMONARY PROGRESS NOTE REFERRING PHYSICIAN: Krystle Monte MD. SUBJECTIVE: She is out of bed to chair. Night was unremarkable. Feels better. Taking p.o. diet. No cough. No sputum production. Mild abdominal pain. No leg pain or leg swelling. OBJECTIVE: GENERAL: In no acute distress. VITAL SIGNS: Temperature is 99, heart rate is 89, respiratory rate is 20, blood pressure 180/80, pulse of 96% on 2 L nasal cannula. HEENT: Moist mucous membrane. Crowded airway. Mallampati score is 4. NECK: Supple. No JVD. LUNGS: Have fair airflow with few rhonchi. HEART: S1 and S2. ABDOMEN: Soft. CSI looks okay. EXTREMITIES: There is no edema. NEUROLOGIC: Awake and alert. Follows simple command. MEDICATIONS: She is on DuoNeb q. 6 hours, heparin 5000 units subcu q. 12 hours, cefepime 1 g IV q. 24 hours, morphine 1.5 mg q. 6 hours p.r.n., Norvasc 10 mg daily, Protonix 40 mg daily, Tylenol p.r.n., Zofran p.r.n. basis. LABORATORY DATA: Shows hemoglobin 11.3, hematocrit 35.0, WBC 9.6, platelet is 107. Sodium 144, potassium 3.7, chloride 110, bicarbonate 27, BUN 92, creatinine 0.7, glucose 97, calcium is 8.1, AST 31, ALT 29, alk phos is 90. Albumin is 2.3, procalcitonin 0.63. IMPRESSION AND PLAN: Status post laparotomy with left inguinal hernia repair and lysis of adhesion, left lower lobe pneumonia, history of rectal carcinoma, anemia, hypertension, started on Norvasc. Spoke to [employer], nursing staff. Arrangement is being made. The patient will be transferred to subacute for continued antibiotics. She may need about another 4 days of antibiotics. Continue bronchodilator, pulmonary toilet. Thank you and we will follow with you. Ken Cabrera MD
--- NOTE | 2017-11-04 23:26 | OP ---
PROCEDURE DATE: 10/28/2017 ADMITTED TO: Room 566, bed 3. PREOPERATIVE DIAGNOSES: 1. Recurrent incarcerated left inguinal femoral hernia. 2. Small bowel obstruction. 3. History of squamous cell carcinoma of the anus. POSTOPERATIVE DIAGNOSES: 1. Recurrent incarcerated left inguinal femoral hernia. 2. Small bowel obstruction. 3. History of squamous cell carcinoma of the anus. PROCEDURE: 1. Exploratory laparotomy with lysis of adhesions. 2. Left inguinal femoral herniorrhaphy. SURGEON: Anil Flores MD SHERIFF'S DETECTIVE: Ivone Antonio DO, PGY-2. SECOND BSW: Keshav Arnold DO, PGY1. TYPE OF ANESTHESIA: General endocranial - Marcaine 0.5. ANESTHESIA ADMINISTERED BY: Manuel Silva MD PATHOLOGY: Pending. OPERATIVE INDICATIONS: The patient is an 82-year-old [place] female who has had left-sided abdominal pain for the past day prior to being brought to the emergency room. She has been diagnosed in the emergency room, was having a small bowel obstruction and has an incarcerated left inguinal femoral mass consistent with sigmoid colon. The lesion is reduced. Only the patient has rapid progression of the small bowel obstruction despite the presence of the nasogastric tube and intravenous rehydration. She is markedly dehydrated clinically and chemically with BUN and creatinine in the 60 and 5.0 range and after extensive rapid replacement of same, antibiotic treatment, etc. lactic acid has been confirmed to be elevated to 5, initially it was 2 and she is brought on an extremely urgent basis to the operating room on the night of 10/28. Risks, benefits and alternatives with their anticipated outcomes were discussed with the patient and with her family and they concur and formally signed the consent at this point. OPERATIVE NOTES: The patient is brought to the operating room, identified by her wrist band, placed on the table in a supine manner and undergoes time-out procedure. She undergoes the induction of general anesthesia and the insertion of an endotracheal tube and sequential compression devices placed on the lower extremities. The abdomen was prepped with Hibiclens and chlorhexidine preparation and aseptically draped. Midline incision was made from the umbilicus down towards the pubis and sharp dissection carried on through and the peritoneum entered between clamps. Ascites was encountered that is clear, pale yellow and is cultured aerobically and anaerobically at this point. The small bowel was adherent to the abdominal wall, was freed and multiple adhesions, some looking preclinically obstructing in the jejunal area are clear. At this point a large herniation of the small bowel content into the inguinal femoral region is encountered. This was reduced and the bowel immediately pinks up and demonstrates normal peristalsis and color and contractions. It was elected at this point to close the inguinal femoral defect with a multiple [id number] #1 Novafil sutures and once the defect is closed, the small bowel was confirmed once more for viability and the nasogastric tube was repositioned into the small bowel and left in place by the anesthesiologist with a nasal secure tape. The abdomen is now closed with running double-stranded #1 PDS sutures. The subcutaneous tissues were lavaged with normal saline solution, blocked with bupivacaine as is the skin, closed with 3-0 Polysorb and the skin with the with the AutoSuture skin stapler. A dry dressing is applied. The patient is awakened, extubated and transported to the recovery room in a satisfactory condition. Sponge, instrument and suture count verified as correct at the end of the procedure. Estimated blood loss during this procedure was minimal. Anil Flores MD
== END 2017-11-01 21:17 | DRG 553 ==
LOC: ED 09:55 → ERH 14:49 → 5RNO 16:03
PROVIDERS: ADMIT Internal Medicine; ATTEND Internal Medicine
PROC: 0D9670Z Drainage of Stomach with Drainage Device, Via Natural or Artificial Opening (ICD-10-PCS; 2017-10-27)
PROC: 0DN80ZZ Release Small Intestine, Open Approach (ICD-10-PCS; 2017-10-28)
PROC: 0YQ60ZZ Repair Left Inguinal Region, Open Approach (ICD-10-PCS; principal; 2017-10-28 18:00)
DX: K40.31 Unilateral inguinal hernia, with obstruction, without gangrene, recurrent (principal); J18.9 Pneumonia, unspecified organism; N17.9 Acute kidney failure, unspecified; R18.8 Other ascites; E86.0 Dehydration; E87.0 Hyperosmolality and hypernatremia; D64.9 Anemia, unspecified; D69.6 Thrombocytopenia, unspecified; Z78.1 Physical restraint status; E87.6 Hypokalemia; I10 Essential (primary) hypertension; R73.9 Hyperglycemia, unspecified; K21.9 Gastro-esophageal reflux disease without esophagitis; Z93.3 Colostomy status; Z85.048 Personal history of other malignant neoplasm of rectum, rectosigmoid junction, and anus; Z90.49 Acquired absence of other specified parts of digestive tract; Z92.3 Personal history of irradiation

== ENCOUNTER 2018-08-23 13:04 | Emergency (ER) | payer OTHER ==
[2018-08-23 13:05] VITALS: BMI 33.9
[2018-08-23] MEDS ORDERED: Sodium Chloride 0.9% 500 ML IV STA (13:54)
--- NOTE | 2018-08-23 13:57 | ED PDOC ---
Arrival/HPI - General Historian: Patient, Family (Daughter) - History of Present Illness Narrative History of Present Illness (Text): 08/23/18 13:55 82 y o female Past medical history rectal ca (s/p resection, last chemo tx 5 y ago), Hypertension, presents to the emergency department complaining of diarrhea. Pt's daughter states that pt has been sick for 1 week, and has had watery, non-bloody diarrhea x 4 days. States that pt has diarrhea 5 mins after she eats. Denies nausea, vomiting, or abd pain. States other persons at home have similar symptoms, inc pt's daughter. Denies hx of recent travel or recent antibiotic use. Denies fevers, but admits to chills. Denies headache, dizziness, changes in gait/ambulation, chest pain, shortness of breath, urinary complaints, or other symptoms. Past medical history: rectal ca (s/p resection, last chemo tx 5 y ago), Hypert ension, SBO PSurgHx: Ex-lap for rectal ca resection and L inguinal hernia repair Allergies: NKDA Home meds: not known by pt or pt's daughter Fam hx: denies Soc hx: denies smoking, EtOH, or illicit drug use PMD: Dr. Monte <Axel Smith - Last Filed: 08/23/18 15:46> <Ronni Conner - Last Filed: 08/23/18 16:38> - General Chief Complaint: GI Problem Time Seen by Provider: 08/23/18 13:16 Past Medical History - Provider Review Nursing Documentation Reviewed: Yes - Travel History Have you recently traveled outside [place] w/in the past 3 mons?: No - Infectious Disease Hx of Infectious Diseases: None - Cardiac Hx Hypertension: Yes - Pulmonary Hx Respiratory Disorders: No - Neurological Hx Neurological Disorder: No - HEENT Hx HEENT Disorder: No - Renal Hx Renal Disorder: No - Endocrine/Metabolic Hx Endocrine Disorders: No - Hematological/Oncological Hx Blood Transfusions: No Hx Blood Transfusion Reaction: No - Integumentary Hx Dermatological Disorder: No - Musculoskeletal/Rheumatological Hx Falls: No - Gastrointestinal Hx Gastroesophageal Reflux: Yes Other/Comment: anal CA - Genitourinary/Gynecological Hx Genitourinary Disorders: No - Psychiatric Hx Emotional Abuse: No Hx Physical Abuse: No Hx Substance Use: No - Past Surgical History Past Surgical History: No Previous - Surgical History Other/Comment: anal cancer resection, colostomy, reversal of colostomy and right hemicolectomy - Anesthesia Hx Anesthesia Reactions: No Hx Malignant Hyperthermia: No - Suicidal Assessment Feels Threatened In Home Enviroment: No <Axel Smith - Last Filed: 08/23/18 15:46> Family/Social History - Physician Review Nursing Documentation Reviewed: Yes Family/Social History: No Known Family HX Smoking Status: Never Smoked Hx Alcohol Use: No Hx Substance Use: No Hx Substance Use Treatment: No <Axel Smith - Last Filed: 08/23/18 15:46> Allergies/Home Meds <Axel Smith - Last Filed: 08/23/18 15:46> <DalilaRonni L - Last Filed: 08/23/18 16:38> Allergies/Adverse Reactions: Allergies No Known Allergies Allergy (Verified 08/23/18 13:33) Review of Systems - Physician Review All systems were reviewed & negative as marked: Yes - Review of Systems Constitutional: absent: Fatigue, Weight Change, Fevers Eyes: absent: Vision Changes Respiratory: absent: SOB, Cough, Sputum, Wheezing Cardiovascular: absent: Chest Pain, Palpitations, Edema, ELLISON Gastrointestinal: Stool Changes, Diarrhea. absent: Abdominal Pain, Constipation, Nausea, Vomiting Genitourinary Female: absent: Dysuria, Frequency, Hematuria, Urine Output Changes Musculoskeletal: absent: Back Pain Skin: absent: Rash, Pruritis Neurological: absent: Headache, Dizziness, Gait Changes Endocrine: absent: Diaphoresis Hemo/Lymphatic: absent: Adenopathy <Axel Smith - Last Filed: 08/23/18 15:46> Physical Exam Vital Signs Reviewed: Yes Vital Signs Temp Pulse Resp BP Pulse Ox 08/23/18 13:31 97.5 F L 80 18 144/73 100 08/23/18 13:05 98.1 F 76 16 132/94 H 99 Temperature: Afebrile Blood Pressure: Hypertensive Pulse: Regular Respiratory Rate: Normal Appearance: Positive for: Well-Appearing, Non-Toxic, Comfortable Pain Distress: None Mental Status: Positive for: Alert and Oriented X 3 - Systems Exam Head: Present: Atraumatic, Normocephalic Pupils: Present: PERRL Extroacular Muscles: Present: EOMI Conjunctiva: Present: Normal Mouth: Present: Moist Mucous Membranes Neck: Present: Normal Range of Motion. No: JVD, Lymphadenopathy Respiratory/Chest: Present: Clear to Auscultation, Good Air Exchange. No: Respiratory Distress, Accessory Muscle Use, Wheezes, Rales, Rhonchi Cardiovascular: Present: Regular Rate and Rhythm, Normal S1, S2. No: Murmurs, Rub, Gallop Abdomen: Present: Normal Bowel Sounds. No: Tenderness, Distention, Rebound, Mass/Organomegaly Back: Present: Normal Inspection. No: Paraspinal Tenderness Upper Extremity: Present: Normal Inspection, Normal ROM, NORMAL PULSES, Neur ovascularly Intact, Capillary Refill < 2s. No: Cyanosis, Edema, Temperature Abnormalties Lower Extremity: Present: Normal Inspection, NORMAL PULSES, Normal ROM, Neurovascularly Intact, Capillary Refill < 2 s. No: Edema, CALF TENDERNESS Neurological: Present: GCS=15, CN II-XII Intact, Speech Normal, Motor Func Grossly Intact, Normal Sensory Function Skin: Present: Warm, Dry, Normal Color Psychiatric: Present: Alert, Oriented x 3, Normal Insight, Normal Concentration <Axel Smith - Last Filed: 08/23/18 15:46> Vital Signs Temp Pulse Resp BP Pulse Ox 08/23/18 15:47 98.3 F 83 16 121/52 L 97 08/23/18 14:35 66 18 121/53 L 100 08/23/18 13:31 97.5 F L 80 18 144/73 100 08/23/18 13:05 98.1 F 76 16 132/94 H 99 <Ronni Conner - Last Filed: 08/23/18 16:38> Medical Decision Making ED Course and Treatment: 08/23/18 14:06 82 y o female Past medical history rectal ca s/p resection and chemo tx, and Hypertension presenting with watery diarrhea x 4 days. R/o infectious process. Plan: -Labs -IVF Will continue to monitor. 08/23/18 15:31 Reassessed pt, states she is feeling better s/p IV fluid bolus. States she wants to go home. Symptoms likely 2/2 viral gastroenteritis. Pt to be discharged to home. Advised to drink plenty of fluids, adhere to BRAT diet, and to follow up with her PMD in 2-3 days after ER d/c. Instructed to return to the emergency department if her clinical symptoms worsen. All questions and concerns addressed with pt and pt's family at bedside, and all are agreeable to plan. - Medication Orders Current Medication Orders: Sodium Chloride (Sodium Chloride 0.9%) 500 mls @ 999 mls/hr IV .Q31M STA Stop: 08/23/18 14:24 <Axel Smith - Last Filed: 08/23/18 15:46> ED Course and Treatment: 08/23/18 16:16 Tawny Bradford is an 82 year old female presents to the emergency department with a complaint of 4 day duration diarrhea. In agreement with resident note, which includes further HPI details. Patient was seen and evaluated with resident, came up with plan and treatment together. EKG: Ordered, reviewed, and independently interpreted the EKG. Rate : 72 BPM Rhythm : NSR Interpretation : RBBB 15:31 Patient feels much better. No lightheadedness standing up. I discussed came plan in nauruan with patient and her family. They state she is drinking fluids. She will make sure to follow up with her PMD on Saturday. I explained diet precautions to them and things to look for to come back to the ED. - Lab Interpretations Lab Results: 08/23/18 14:00 08/23/18 14:00 Lab Results 08/23/18 14:00: Sodium 139, Potassium 3.8, Chloride 111 H, Carbon Dioxide 22, Anion Gap 10, BUN 15, Creatinine 0.9, Est GFR ( Amer) > 60, Est GFR (Non- Af Amer) 60, Random Glucose 90, Calcium 9.5, Magnesium 1.9, Total Bilirubin 1.3, AST 59 H D, ALT 34, Alkaline Phosphatase 126 D, Total Protein 7.7, Albumin 3.7, Globulin 4.0, Albumin/Globulin Ratio 0.9 L 08/23/18 14:00: WBC 4.2 L, RBC 3.98, Hgb 13.4 D, Hct 39.4, MCV 99.0, MCH 33.7, MCHC 34.0, RDW 14.5, Plt Count 153, MPV 9.5, Gran % 60.6, Lymph % (Auto) 26.9, Trego % (Auto) 10.8 H, Eos % (Auto) 1.2 L, Baso % (Auto) 0.5, Gran # 2.57, Lymph # (Auto) 1.1 L, Trego # (Auto) 0.5, Eos # (Auto) 0.1, Baso # (Auto) 0.02 - Medication Orders Current Medication Orders: Discontinued Medications Sodium Chloride (Sodium Chloride 0.9%) 500 mls @ 999 mls/hr IV .Q31M STA Stop: 08/23/18 14:24 Last Admin: 08/23/18 14:06 Dose: 999 mls/hr eMAR Start Stop Document 08/23/18 14:06 (Rec: 08/23/18 14:07 [email or web address]) Intravenous Solution Start Date 08/23/18 Start Time 14:06 End Date 08/23/18 End time 14:36 Total Infusion Time 30 <Ronni Conner - Last Filed: 08/23/18 16:38> - Scribe Statement The provider has reviewed the documentation as recorded by the Scribe Roseline Garcia Provider Scribe Attestation: All medical record entries made by the Scribe were at my direction and personally dictated by me. I have reviewed the chart and agree that the record accurately reflects my personal performance of the history, physical exam, medical decision making, and the department course for this patient. I have also personally directed, reviewed, and agree with the discharge instructions and disposition. a <Ronni Conner - Last Filed: 08/23/18 16:38> Disposition/Present on Arrival - Present on Arrival Any Indicators Present on Arrival: No History of DVT/PE: No History of Uncontrolled Diabetes: No Urinary Catheter: No History of Decub. Ulcer: No History Surgical Site Infection Following: None - Disposition Have Diagnosis and Disposition been Completed?: Yes Disposition Time: 15:46 <Axel Smith - Last Filed: 08/23/18 15:46> <Ronni Conner - Last Filed: 08/23/18 16:38> - Disposition Diagnosis: Viral gastroenteritis Disposition: HOME/ ROUTINE Condition: IMPROVED Discharge Instructions (ExitCare): Viral Gastroenteritis, Adult (DC) Print Language: FRISIAN Additional Instructions: Please follow-up with your primary care physician (Dr. Monte) within 2-3 days of hospital discharge. Please adhere to BRAT diet (Bread, rice, apples, and tea), until symptoms improve; can advance diet as tolerated. Please hydrate with plenty of oral fluids. Should your symptoms recur or worsen, please call your primary care physician or report to your nearest emergency department. Referrals: Krystle Monte MD [Family Provider] - Follow up with primary Forms: [employer] (Uzbek)
[2018-08-23 14:06] LABS: BASO # 0.02 K/mm3 (0.0-2.0); BASO % 0.5 % (0.0-3.0); EOS # 0.1 (0.0-0.7); EOS % 1.2 % (1.5-5.0); GRAN # 2.57 (1.4-6.5); GRAN % 60.6 % (50.0-68.0); HEMOGLOBIN 13.4 g/dL (12.0-16.0); LYMPH # 1.1 (1.2-3.4); LYMPH % 26.9 % (22.0-35.0); MEAN CORPUSCULAR HEMOGLOBIN 33.7 pg (25.0-35.0); MEAN PLATELET VOLUME 9.5 fl (7.0-11.0); MONO # 0.5 (0.1-0.6); MONO % 10.8 % (1.0-6.0); RBC 3.98 10^6/uL (3.5-6.1); RED CELL DISTRIBUTION WIDTH 14.5 % (11.5-14.5); WHITE BLOOD COUNT 4.2 10^3/uL (4.5-11.0)
[2018-08-23 14:20] LABS: ALB/GLOB RATIO 0.9 (1.1-1.8); ALBUMIN 3.7 g/dL (3.0-4.8); ALT/SGPT 34 U/L (7-56); AST/SGOT 59 U/L (14-36); BLOOD UREA NITROGEN 15 mg/dL (7-21); CALCIUM 9.5 mg/dL (8.4-10.5); GFR NON-AFRICAN AMERICAN 60
[2018-08-23 15:50] VITALS: BP 121/52; PULSE 83; RESP 16; TEMP 98.3; O2SAT 97
--- NOTE | 2018-08-24 08:44 | CARD ---
APPROVED REPORT Date of service: 08/23/2018 EKG Measurement Heart [id number] CT [id number] <Conclusion> Normal sinus rhythm Right bundle branch block Abnormal ECG
== END 2018-08-23 15:47 | disposition home or self-care (01) ==
LOC: ED 13:04
DX: A08.4 Viral intestinal infection, unspecified (principal); I10 Essential (primary) hypertension; Z85.048 Personal history of other malignant neoplasm of rectum, rectosigmoid junction, and anus; Z98.890 Other specified postprocedural states
CPT/HCPCS: 80053; 83735; 85025; 93005; 99284; J7040